=== PATIENT | female | born 1985 | race Caucasian/White ===

== ENCOUNTER 2020-11-01 07:59 | Outpatient (CLI) | payer BC, SELFPAY ==
[2020-11-01 08:35] LABS: Glucose Fasting Gestational 86 mg/dL (>/=95)
[2020-11-01 10:07] LABS: Glucose 1 Hour Gest 148 mg/dL (>/=180)
[2020-11-01 10:52] LABS: Glucose 2 Hour Gest 117 mg/dL (>/= 155)
[2020-11-01 12:00] LABS: Glucose 3 Hour Gest 145 mg/dL (>/=140)
== END 2020-11-01 08:00 | disposition home or self-care (01) ==
LOC: ANHLAB 08:03
PROVIDERS: PCP Physician Assistant; Visit Provider Obstetrics & Gynecology
DX: O99.810 Abnormal glucose complicating pregnancy (principal); Z3A.00 Weeks of gestation of pregnancy not specified
CPT/HCPCS: 36415; 82951; 82952

== ENCOUNTER 2020-12-27 09:30 | Outpatient (CLI) | payer BC, SELFPAY ==
[2020-12-27 10:32] LABS: Glucose Fasting Gestational 83 mg/dL (>/=95)
[2020-12-27 11:27] LABS: Glucose 1 Hour Gest 138 mg/dL (>/=180)
[2020-12-27 12:28] LABS: Glucose 2 Hour Gest 132 mg/dL (>/= 155)
[2020-12-27 13:16] LABS: Glucose 3 Hour Gest 137 mg/dL (>/=140)
== END 2020-12-27 09:31 | disposition home or self-care (01) ==
LOC: ANHLAB 09:32
PROVIDERS: PCP Physician Assistant; Visit Provider Obstetrics & Gynecology
DX: O35.8XX9 Maternal care for other (suspected) fetal abnormality and damage, other fetus (principal); Z3A.00 Weeks of gestation of pregnancy not specified
CPT/HCPCS: 36415; 82951; 82952

== ENCOUNTER 2021-01-25 09:27 | Outpatient (CLI) | payer BC, SELFPAY ==
[2021-01-25] VITALS (9 sets, daily range): BP systolic 126–133; BP diastolic 79–92; PULSE 90–95
--- NOTE | 2021-01-25 10:08 | PC.NURSE ---
Patient offered Zofran and patient is declining it at this time. States that its just her normal morning sickness and that she is ok.
[2021-01-25 10:21] LABS: Basophils Percent Auto 0.3 % (0.2-1.2); Eosinophils Absolute Auto 0.1 K/mm3 (0-0.3); Eosinophils Percent Auto 0.3 % (0-4.4); Hematocrit 31.7 % (37.0-47.0); Hemoglobin 9.9 g/dL (12.0-15.0); Immature Granulocyte Absolute 0.14 K/mm3 (0.00-0.031); Lymphocytes Absolute Auto 1.65 K/mm3 (0.9-3.2); Lymphocytes Percent Auto 11.5 % (18.3-44.2); Mean Corpuscular HGB Conc 31.2 g/dl (32-36); Mean Corpuscular Hemoglobin 27.2 pg (26-34); Mean Corpuscular Volume 87.1 fl (80-100); Mean Platelet Volume 10.3 fl (7.4-10.4); Monocytes Percent Auto 7.1 % (2.6-8.5); Neutrophils Absolute Auto 11.4 K/mm3 (1.3-6.7); Neutrophils Percent Auto 79.8 % (45.5-73.1); Platelet Count Result 322 k/mm3 (150-375); Red Blood Count 3.64 M/mm3 (4.2-5.4); Red Cell Distribution Width 13.4 % (11.5-14.5); White Blood Count 14.3 K/mm3 (4.5-10.0)
--- NOTE | 2021-01-25 10:24 | PC.NURSE ---
Patient states that her nausea is better.
[2021-01-25 10:38] LABS: Alanine Aminotransferase 17 U/L (4-35); Albumin Level 3.5 g/dL (3.5-5.1); Alkaline Phosphatase 131 U/L (38-126); Anion Gap 9 mmol/L (8-16); Aspartate Amino Transferase 20 U/L (14-36); Bilirubin,Total 0.3 mg/dL (0.2-1.3); Blood Urea Nitrogen 8 mg/dL (7-17); Calcium 8.9 mg/dL (8.4-10.2); Carbon Dioxide 20 mmol/L (22-30); Chloride 105 mmol/L (98-107); Estimated Glomerular Filt Rate > 60; Glucose 93 mg/dL (65-110); Sodium 134 mmol/L (137-145); Uric Acid 3.2 mg/dL (2.5-7.5)
[2021-01-25 10:44] LABS: Add Urine Microscopic? YES; Appearance Urine Cloudy (Clear); Bacteria Urine 2+ /hpf; Bilirubin Urine Negative (Negative); Blood Urine Negative (Negative); Color Urine Yellow (Yellow); Glucose Urine UA Negative (Negative); Ketones Urine Negative (Negative); Leukocyte Esterase Ur Negative LEU/UL (NEGATIVE); Mucus Urine Heavy /lpf; Nitrate Urine Negative (Negative); Protein Urine 2+ mg/dL (Negative); Specific Grav Ur 1.026 (1.001-1.035); Squamous Epithelial Cell Urine Many /hpf (Few); Urobilinogen Urine Negative mg/dL (<2.0)
[2021-01-25 10:56] LABS: Creatinine Urine 193.3 mg/dL; Total Protein Urine Random 20 mg/dL
== END 2021-01-25 11:42 | disposition home or self-care (01) ==
LOC: ANHOBOP 09:34 → ANHOBPP 09:36
PROVIDERS: PCP Physician Assistant; Visit Provider Obstetrics & Gynecology
DX: O13.9 Gestational [pregnancy-induced] hypertension without significant proteinuria, unspecified trimester (principal); Z3A.00 Weeks of gestation of pregnancy not specified
CPT/HCPCS: 36415; 59025; 80053; 81001; 82570; 84156; 84550; 85025; 87086; 99199

== ENCOUNTER 2021-02-05 05:14 | Inpatient (IN) | payer BC, SELFPAY ==
[2021-02-05] VITALS (66 sets, daily range): BP systolic 109–155; BP diastolic 68–98; PULSE 72–198; RESP 11–20; TEMP 36.2–37; O2SAT 97–100; BMI 37.2
[2021-02-05] MEDS: LACTATED RINGERS 1,000 ML 125 ML IV CONT ×2 (06:00→07:07)
[2021-02-05 06:04] LABS: Basophils Percent Auto 0.2 % (0.2-1.2); Eosinophils Absolute Auto 0.1 K/mm3 (0-0.3); Eosinophils Percent Auto 0.5 % (0-4.4); Hematocrit 30.6 % (37.0-47.0); Hemoglobin 9.7 g/dL (12.0-15.0); Immature Granulocyte Absolute 0.23 K/mm3 (0.00-0.031); Immature Granulocyte Percent A 1.7 % (0-0.5); Lymphocytes Absolute Auto 1.75 K/mm3 (0.9-3.2); Lymphocytes Percent Auto 12.8 % (18.3-44.2); Mean Corpuscular HGB Conc 31.7 g/dl (32-36); Mean Corpuscular Hemoglobin 27.4 pg (26-34); Mean Corpuscular Volume 86.4 fl (80-100); Monocytes Absolute Auto 1.3 K/mm3 (0.1-0.6); Monocytes Percent Auto 9.7 % (2.6-8.5); Neutrophils Absolute Auto 10.3 K/mm3 (1.3-6.7); Neutrophils Percent Auto 75.1 % (45.5-73.1); Platelet Count Result 302 k/mm3 (150-375); Red Blood Count 3.54 M/mm3 (4.2-5.4); Red Cell Distribution Width 13.2 % (11.5-14.5); White Blood Count 13.7 K/mm3 (4.5-10.0)
[2021-02-05] MEDS: GENTAMICIN SULFATE INJ 415 MG in DEXTROSE 5% 100 ML 110.38 MG IVPB (06:10)
--- NOTE | 2021-02-05 06:21 | WPDANESEPP ---
Anes - Eval Pre Procedure Procedure: Operation Date: 02/06/21 07:30 Proposed Procedures p Primary Section - Mila Syed MD Date/Time: 02/05/21 06:21 Pre Op Diagnosis: Leaking Fluid Patient Data Age: 35 Gender: F Height: 1.73 m Weight: 111 kg Last Vital Signs Pulse 102 H 02/05/21 06:16 BP 132/84 02/05/21 06:16 Allergies Allergy/AdvReac Type Severity Reaction Status Date / Time Penicillins Allergy Intermediate swelling Verified 08/20/20 09:09 and hives Home Medications Medication Instructions Recorded Confirmed Type promethazine 12.5 mg tablet See Rx Instructions .ROUTE 07/25/19 01/16/21 Rx .COMPLEX #90 tablet lorazepam 0.5 mg tablet 0.5 mg PO BID PRN #30 tablet 05/22/20 01/16/21 Rx ondansetron HCl 4 mg tablet See Rx Instructions .ROUTE 05/22/20 01/16/21 Rx .COMPLEX #30 tablet amitriptyline 150 mg tablet See Rx Instructions .ROUTE 11/14/20 01/16/21 Rx .COMPLEX #30 tablet PNV cmb#95-ferrous fumarate-FA 1 tablet PO DAILY 01/16/21 01/16/21 History [] Laboratory Tests 02/05/21 02/05/21 05:48 05:48 WBC 13.7 K/mm3 H K/mm3 (4.5-10.0) RBC 3.54 M/mm3 L M/mm3 (4.2-5.4) Hgb 9.7 g/dL L g/dL (12.0-15.0) Hct 30.6 % L % (37.0-47.0) MCV 86.4 fl fl (80-100) MCH 27.4 pg pg (26-34) MCHC 31.7 g/dl L g/dl (32-36) RDW 13.2 % % (11.5-14.5) Plt Count 302 k/mm3 k/mm3 (150-375) MPV 10.0 fl fl (7.4-10.4) Immature Gran % (Auto) 1.7 % H % (0-0.5) Neut % (Auto) 75.1 % H % (45.5-73.1) Lymph % (Auto) 12.8 % L % (18.3-44.2) [place] % (Auto) 9.7 % H % (2.6-8.5) Eos % (Auto) 0.5 % % (0-4.4) Baso % (Auto) 0.2 % % (0.2-1.2) Lymph # (Auto) 1.75 K/mm3 K/mm3 (0.9-3.2) [place] # (Auto) 1.3 K/mm3 H K/mm3 (0.1-0.6) Eos # (Auto) 0.1 K/mm3 K/mm3 (0-0.3) Baso # (Auto) 0.0 K/mm3 K/mm3 (0.0-0.1) Abs Immat Gran (auto) 0.23 K/mm3 H K/mm3 (0.00-0.031) Absolute Neuts (auto) 10.3 K/mm3 H K/mm3 (1.3-6.7) Absolute Nucleated RBC 0.0 K/mm3 K/mm3 (0.0-0.012) Nucleated RBC % 0.0 % % (0.0-0.2) RPR Pending Patient hx anesthesia problems: none Family hx anesthesia problems: none Results Review: All pre-operative results and documents have been reviewed as part of the pre-operative evaluation. [facility] Family History Family History Father Patient's father is in good health Sibling Patient's sister is in good health Mother Family history of lung cancer Patient's mother is Grandparent Family history of lung cancer Social History Social History Smoking status: Never smoker Second hand tobacco smoke exposure: Yes Alcohol intake: never Substance use: never Substance use type: marijuana Spiritual care concerns: No Exam Day of Procedure 02/05/21 06:21
--- NOTE | 2021-02-05 07:04 | WPDANESEPPF ---
Anes - Initial Pre Proc Eval Procedure: Operation Date: 02/05/21 07:00 Proposed Procedures p Primary Section - Mila Syed MD Date/Time: 02/05/21 07:04 Surgeon: Mila Syed MD Pre Op Diagnosis: Leaking Fluid Patient Data Age: 35 Gender: F Height: 1.73 m Weight: 111 kg Last Vital Signs Temp 36.3 C L 02/05/21 06:43 Pulse 99 02/05/21 07:01 BP 136/94 H 02/05/21 07:01 Allergies Allergy/AdvReac Type Severity Reaction Status Date / Time Penicillins Allergy Intermediate swelling Verified 08/20/20 09:09 and hives Home Medications Medication Instructions Recorded Confirmed Type promethazine 12.5 mg tablet See Rx Instructions .ROUTE 07/25/19 01/16/21 Rx .COMPLEX #90 tablet lorazepam 0.5 mg tablet 0.5 mg PO BID PRN #30 tablet 05/22/20 01/16/21 Rx ondansetron HCl 4 mg tablet See Rx Instructions .ROUTE 05/22/20 01/16/21 Rx .COMPLEX #30 tablet amitriptyline 150 mg tablet See Rx Instructions .ROUTE 11/14/20 01/16/21 Rx .COMPLEX #30 tablet PNV cmb#95-ferrous fumarate-FA 1 tablet PO DAILY 01/16/21 01/16/21 History [] Laboratory Tests 02/05/21 02/05/21 05:48 05:48 WBC 13.7 K/mm3 H K/mm3 (4.5-10.0) RBC 3.54 M/mm3 L M/mm3 (4.2-5.4) Hgb 9.7 g/dL L g/dL (12.0-15.0) Hct 30.6 % L % (37.0-47.0) MCV 86.4 fl fl (80-100) MCH 27.4 pg pg (26-34) MCHC 31.7 g/dl L g/dl (32-36) RDW 13.2 % % (11.5-14.5) Plt Count 302 k/mm3 k/mm3 (150-375) MPV 10.0 fl fl (7.4-10.4) Immature Gran % (Auto) 1.7 % H % (0-0.5) Neut % (Auto) 75.1 % H % (45.5-73.1) Lymph % (Auto) 12.8 % L % (18.3-44.2) [place] % (Auto) 9.7 % H % (2.6-8.5) Eos % (Auto) 0.5 % % (0-4.4) Baso % (Auto) 0.2 % % (0.2-1.2) Lymph # (Auto) 1.75 K/mm3 K/mm3 (0.9-3.2) [place] # (Auto) 1.3 K/mm3 H K/mm3 (0.1-0.6) Eos # (Auto) 0.1 K/mm3 K/mm3 (0-0.3) Baso # (Auto) 0.0 K/mm3 K/mm3 (0.0-0.1) Abs Immat Gran (auto) 0.23 K/mm3 H K/mm3 (0.00-0.031) Absolute Neuts (auto) 10.3 K/mm3 H K/mm3 (1.3-6.7) Absolute Nucleated RBC 0.0 K/mm3 K/mm3 (0.0-0.012) Nucleated RBC % 0.0 % % (0.0-0.2) RPR Pending Patient hx anesthesia problems: none Family hx anesthesia problems: none Results Review: All pre-operative results and documents have been reviewed as part of the pre-operative evaluation. [facility] Past Medical History Medical History (Updated 02/05/21 @ 07:04 by Darrel Emmanuel MD) Cyclic vomiting syndrome Family History Family History Father Patient's father is in good health Sibling Patient's sister is in good health Mother Family history of lung cancer Patient's mother is Grandparent Family history of lung cancer Social History Social History (Updated 02/05/21 @ 07:05 by Darrel Emmanuel MD) Smoking status: Former smoker Tobacco type: cigarettes Second hand tobacco smoke exposure: Yes Alcohol intake: never Substance use: never Substance use type: marijuana Spiritual care concerns: No Anes - Eval Final PreProcedure Day of Procedure 02/05/21 07:04 Patient weight: obese Heart: regular rate and rhythm Lungs: clear to auscultation Airway: Mallampati scale class II Neurological: alert and oriented Last oral intake: >/= 8 hours ASA classification: II Emergent: no Anesthetic plan: proceed Anesthesia type and monitoring: regional spinal and standard monitoring Results Review: All pre-operative results and documents have been reviewed as part of the pre-operative evaluation. Informed Consent: The patient's anesthetic plan and its attendant risks and benefits were discussed with the patient/family/POA. Questions were solicited and answers provided to the satisfaction of the patient/family/POA.
[2021-02-05] MEDS: CLINDAMYCIN 900 MG/D5W 50 ML 900 MG/50 ML PIGGYBACK 50 MG IVPB (07:08)
--- NOTE | 2021-02-05 07:24 | PM.IMHP ---
H&P: HPI History of Present Illness Date/Time: 02/05/21 07:24 Chief Complaint: SROM at 430 Narrative: Jackie is a 35yo G1 at 38.6 who has SROM. Planned CS tomorrow for breech, LGA. otherwise uncomplicated. Review of Systems Review of Systems: All systems reviewed & are unremarkable except as noted in HPI and below PMFSH Past Medical History Medical History (Updated 02/05/21 @ 07:04 by Darrel Emmanuel MD) Cyclic vomiting syndrome Family History Family History Father Patient's father is in good health Sibling Patient's sister is in good health Mother Family history of lung cancer Patient's mother is Grandparent Family history of lung cancer Social History Social History (Updated 02/05/21 @ 07:05 by Darrel Emmanuel MD) Smoking status: Former smoker Tobacco type: cigarettes Second hand tobacco smoke exposure: Yes Alcohol intake: never Substance use: never Substance use type: marijuana Spiritual care concerns: No Meds Home Medications and Allergies Home Medications Medication Instructions Recorded Confirmed Type promethazine 12.5 mg tablet See Rx Instructions .ROUTE 07/25/19 01/16/21 Rx .COMPLEX #90 tablet lorazepam 0.5 mg tablet 0.5 mg PO BID PRN #30 tablet 05/22/20 01/16/21 Rx ondansetron HCl 4 mg tablet See Rx Instructions .ROUTE 05/22/20 01/16/21 Rx .COMPLEX #30 tablet amitriptyline 150 mg tablet See Rx Instructions .ROUTE 11/14/20 01/16/21 Rx .COMPLEX #30 tablet PNV cmb#95-ferrous fumarate-FA 1 tablet PO DAILY 01/16/21 01/16/21 History [] Allergies Allergy/AdvReac Type Severity Reaction Status Date / Time Penicillins Allergy Intermediate swelling Verified 08/20/20 09:09 and hives Vital Signs Vital Signs - 24 hr 02/05/21 05:31 02/05/21 05:46 02/05/21 06:01 Temperature Pulse Rate 99 107 H 100 Blood Pressure 125/75 120/72 142/91 H 02/05/21 06:16 02/05/21 06:31 02/05/21 06:43 Temperature 97.3 F L Pulse Rate 102 H 100 Blood Pressure 132/84 133/89 02/05/21 06:46 02/05/21 07:01 02/05/21 07:16 Temperature Pulse Rate 96 99 99 Blood Pressure 127/79 136/94 H 131/83 Exam Const: General: no acute distress Resp: Effort & Inspection: normal respiratory effort Auscultation: clear to auscultation bilaterally Cardio: Rate: regular rate Rhythm: regular rhythm GI: GI Palp: Yes Soft to palpation Extrem: General: normal to inspection H&P: Results Labs Labs: Short CBC 02/05/21 Range/Units 05:48 WBC 13.7 H (4.5-10.0) K/mm3 Hgb 9.7 L (12.0-15.0) g/dL Hct 30.6 L (37.0-47.0) % Plt Count 302 (150-375) k/mm3 Assessment and Plan Additional Plan Plan primary CS YOHAN perry Discussed RBA, pt consented, all questions answered. will proceed.
--- NOTE | 2021-02-05 08:18 | PM.OBPRVD ---
OB - Delivery Note Procedure Delivery date: 02/05/21 Procedure: Procedures Operation Date: 02/05/21 07:00 <No data on this case meets the specified criteria> Operation Date: 02/05/21 07:30 Actual Procedure Side Surgeon p Section Mila Syed MD Route of delivery: Specimen: Yes (placenta) Quantitative Blood Loss (ml): 190 Anesthesia type: Spinal Disposition: floor Complications: none Narrative: The patient was taken to the OR and received spinal anesthesia. She was placed in dorsal supine position with left lateral tilt. SCDs and cunningham were placed. She was prepped and draped in the normal sterile fashion. A Pfannensteil skin incision was made and carried through to the underlying layer of fascia. The fascia was incised in the midline and then extended laterally using Vallejo scissors. The muscles were in the midline and the peritoneum was entered bluntly. The peritoneal incision was extended inferiorly and superiorly with care to avoid the bladder. The bladder blade was then inserted, the vesicouterine peritoneum was grasped, incised with Metzenbaum scissors, and a bladder flap created. The bladder blade was reinserted. A low transverse uterine incision was made with a scalpel and extended bluntly. AROM was performed and fluid was noted to be clear. The head was delivered, followed by the remainder of the baby. The baby's oropharynx was suctioned. After 30 seconds, the cord was clamped and cut and the infant was handed off. Cord blood was obtained and the placenta was then removed manually. The uterus was exteriorized. A moist lap sponge was used to curette the endometrium. The uterine incision was then closed with one layer of 0-Vicryl in a running, locking fashion. Good hemostasis was noted. The posterior cul de sac was irrigated with normal saline and cleared of all clot and debris. The uterus was returned to the abdomen. Both lateral gutters were then irrigated. The rectus muscles were inspected and found to be hemostatic. The fascia was reapproximated using 0-Vicryl in running fashion. The subcutaneous tissue was irrigated with normal saline and made hemostatic with Bovie electrocautery. The subcutaneous tissue was reapproximated with a layer of running 2-0 plain gut. The skin was then closed with absorbable maribel. Steri strips and a bandage were applied. The uterus was evacuated. The patient tolerated the procedure very well. All counts were correct. She was taken to the recovery room in good condition. Baby Date of : 02/05/21 Time of : 07:48 Weeks of gestation at delivery: 38 gender: Female Weight (pounds): 9 Weight (ounces): 9 presentation: breech Placenta delivery description: Manual Removal cord vessel description: 3 Vessels and Delayed Cord Clamping score one minute: 8 score five minutes: 9
[2021-02-05] MEDS: OXYTOCIN 30 UNITS/NS 500 ML 30 UNITS/500 ML BAG 125 UNITS IV CONT (08:31)
[2021-02-05 10:01] LABS: Rapid Plasma Reagin Non-Reactive (NonReactive)
[2021-02-05] MEDS: fentaNYL CITRATE INJ (*CRX) 100 MCG/2 ML VIAL 25 MCG IV PUSH (10:30)
--- NOTE | 2021-02-05 10:36 | PC.NURSE ---
Patient transferred to post room #288 per stretcher from labor and delivery. Support person present. Oriented to unit, room, information board, rooming in, admission packet and security measures. Patient verbalizes understanding.
--- NOTE | 2021-02-05 11:15 | PC.NURSE ---
Consult with pt., mother reports is eagerly fed first feeding without issue. Reviewed feeding cues, frequencies, duration of feedings, feeding elimination flow sheet, and signs of adequate intake. Demonstrated stimulation techniques to wake for feeding. Reviewed signs of a correct latch, effective nursing and suck swallow ratio. Nipple care reviewed of lanolin after feedings and warm compresses as needed. Requested mother to call out for RN/LC assistance next feeding to assess latch. Instructed feeding should be initiated three hours from start of last feeding or if feeding cues are noted before. Mother voiced understanding of information shared.
--- NOTE | 2021-02-05 11:40 | PC.NURSE ---
Mother called out for assist with feeding. Infant is able to freely thrust tongue past gum ridge and flange both lips. Skin is intact on both nipples, no redness and bruising noted. Reviewed feeding cues, frequencies, duration of feedings, feeding elimination flow sheet, and signs of adequate intake. Demonstrated stimulation techniques to wake for feeding. Assisted with infant to breast. Reviewed positioning/alignment in cross cradle, holding breast in ?U? hold and guided asymmetrical latch on. Reviewed rational for each. Several attempts made was sleepy and not making attempts to latch. Suggested skin to skin and attempt again in 30 minutes.
--- NOTE | 2021-02-05 12:30 | PC.NURSE ---
Assisted with infant to breast. Reviewed positioning/alignment in cross cradle, holding breast in ?U? hold and guided asymmetrical latch on. Reviewed rational for each. Small amount of glucose to gloved finger to entice infant to suck. Infant eagerly suckling. Infant able to latch correctly within a few attempts. nursed eagerly with steady draws and occasional swallowing noted, some pausing noted. Reviewed signs of a correct latch, effective nursing and suck swallow ratio. Suggested mother stimulate while feeding to increase stimulate, increase intake and to assist with maintaining deep latch. would slip to shallow latch causing tenderness. Demonstrated how to adjust latch more deeply while feeding if needed. Mother reports she can feel the difference in latch with no tenderness. Nipple care reviewed of lanolin after feedings, warm compresses as needed. Instructed mother to call out for RN assistance if she is unable to latch for feeding or she has discomfort with nursing. Instructed feeding should be initiated three hours from start of last feeding or if feeding cues are noted before. Mother voiced understanding of information shared.
[2021-02-05] MEDS: DEXTROSE 5%/0.45% SOD CHL 1,000 ML 125 ML IV CONT (12:45)
[2021-02-05] MEDS: KETOROLAC 30 MG/ML VIAL (*BKC) IV PUSH (16:59)
[2021-02-06 04:30] VITALS: BP 129/79; PULSE 107; RESP 16; TEMP 36.6
[2021-02-06] MEDS: HYDROcodone/acetaminophen (*CRX) 5-325 MG TABLET 1 TAB PO ×6 (04:39→23:06)
[2021-02-06] MEDS: IBUPROFEN 600 MG TABLET PO ×3 (04:39→19:59)
[2021-02-06 05:20] LABS: Basophils Percent Auto 0.1 % (0.2-1.2); Eosinophils Absolute Auto 0.1 K/mm3 (0-0.3); Eosinophils Percent Auto 0.5 % (0-4.4); Hematocrit 26.8 % (37.0-47.0); Hemoglobin 8.4 g/dL (12.0-15.0); Immature Granulocyte Absolute 0.18 K/mm3 (0.00-0.031); Immature Granulocyte Percent A 1.2 % (0-0.5); Lymphocytes Absolute Auto 1.28 K/mm3 (0.9-3.2); Lymphocytes Percent Auto 8.6 % (18.3-44.2); Mean Corpuscular HGB Conc 31.3 g/dl (32-36); Mean Corpuscular Hemoglobin 26.8 pg (26-34); Mean Corpuscular Volume 85.6 fl (80-100); Mean Platelet Volume 10.3 fl (7.4-10.4); Monocytes Absolute Auto 1.3 K/mm3 (0.1-0.6); Neutrophils Percent Auto 80.6 % (45.5-73.1); Platelet Count Result 270 k/mm3 (150-375); Red Blood Count 3.13 M/mm3 (4.2-5.4); Red Cell Distribution Width 13.3 % (11.5-14.5); White Blood Count 14.9 K/mm3 (4.5-10.0)
--- NOTE | 2021-02-06 07:35 | P.PNOB_ITS ---
OB - PN: Subj Subjective Date/time seen: 02/06/21 07:35 Patient comments: no complaints baby status: doing well [place] feeding status: exclusively breast feeding Narrative: POD 1 from primary CS. Doing well. Normal lochia. Eating, ambulating, cunningham out. Has not voided yet. OB - PN: Obj Data Labs CBC & Chem 7: 02/06/21 04:29 Labs: Laboratory Results - last 24 hr 02/05/21 02/06/21 05:48 04:29 WBC 14.9 H RBC 3.13 L Hgb 8.4 L Hct 26.8 L MCV 85.6 MCH 26.8 MCHC 31.3 L RDW 13.3 Plt Count 270 MPV 10.3 Immature Gran % (Auto) 1.2 H Neut % (Auto) 80.6 H Lymph % (Auto) 8.6 L [place] % (Auto) 9.0 H Eos % (Auto) 0.5 Baso % (Auto) 0.1 L Lymph # (Auto) 1.28 [place] # (Auto) 1.3 H Eos # (Auto) 0.1 Baso # (Auto) 0.0 Abs Immat Gran (auto) 0.18 H Absolute Neuts (auto) 12.0 H Absolute Nucleated RBC 0.0 Nucleated RBC % 0.0 RPR Non-reactive OB - PN A/P Plan day: 1 Plan: routine care Comments: UOP great routine post op care iron for anemia, but minimal drop from starting hgb plans DC for Fri or Sat Time Spent With Patient Time: Total time spent is greater than 50% in coordination of care (as documented) at patient's floor/unit and/or counseling patient: Exam Narrative: NAD abdomen soft, appropriately tender, incision bandaged Extremities nontender with 1+ edema
[2021-02-06 09:20] VITALS: BP 141/91; PULSE 90; RESP 18; TEMP 36.8
[2021-02-06] MEDS: MULTIVIT/MIN/PREN/FOL AC/IRON TABLET 1 TAB PO (09:37)
[2021-02-06] MEDS: POLYSACCHARIDE IRON COMPLEX 150 MG CAPSULE PO ×2 (09:37→16:23)
[2021-02-06] MEDS: DOCUSATE SODIUM 100 MG CAPSULE PO ×2 (09:37→16:23)
--- NOTE | 2021-02-06 13:39 | WPDANLDPN2 ---
Anes-Prog Note L&D Date/Time: 02/06/21 13:39 Comfortable throughout: section Neuraxial method: spinal Epidural/Spinal procedure site: clean & non-tender Neuro status: Neuro function grossly intact. Cardiovascular status: normal Respiratory status: normal Airway patency: baseline Mental status: baseline Post-Op hydration status: normal Vital Signs: Last Vital Signs Temp 36.8 C 02/06/21 09:20 Pulse 90 02/06/21 09:20 Resp 18 02/06/21 09:20 BP 141/91 H 02/06/21 09:20 Pulse Ox 99 02/05/21 10:50 Pain score (VAS): 0 I/O: Intake & Output 02/05/21 02/06/21 02/06/21 23:59 07:59 15:59 Intake Total 1278 400 500 Output Total 2100 1700 500 Balance -822 -1300 0 Post-procedural complaints: none Patient feedback: Patient satisfied with anesthetic care.
--- NOTE | 2021-02-06 13:39 | WPDANLDNPN2 ---
Anes-Prog Note L&D-Neuraxial Date/Time: 02/06/21 13:39 Neuraxial medications: intrathecal PF morphine Opiod-related complaints: none Patient feedback: Patient satisfied with post-operative pain management.
[2021-02-06 20:00] VITALS: BP 138/97; PULSE 112; RESP 16; TEMP 36.2
[2021-02-07] MEDS: IBUPROFEN 600 MG TABLET PO ×3 (03:00→19:27)
[2021-02-07] MEDS: HYDROcodone/acetaminophen (*CRX) 5-325 MG TABLET 1 TAB PO ×2 (03:00→05:55)
--- NOTE | 2021-02-07 07:55 | PM.OBPNVD ---
OB - PN: Subj Subjective Date/time seen: 02/07/21 07:55 Patient comments: no complaints, pain well controlled, incisional pain, tolerating diet and flatus present OB - PN: Obj Data Labs CBC & Chem 7: 02/06/21 04:29 OB - PN A/P Plan day: 2 Plan: routine care Comments: POD#2 LTCS - no problems, Time Spent With Patient Time: Total time spent is greater than 50% in coordination of care (as documented) at patient's floor/unit and/or counseling patient: Exam Const: General: comfortable, no acute distress and alert Resp: Effort & Inspection: normal respiratory effort Auscultation: no crackles, no rales and no rhonchi Cardio: Rate: regular rate Heart sounds: no click, no murmurs and no rubs GI: Inspection: non-distended GI Palp: No Tenderness to palpation present (GI) Auscultation: normal bowel sounds Other: Incision - CDI Extrem: General: normal to inspection, no pedal edema and no calf tenderness
[2021-02-07 09:00] VITALS: BP 134/92; PULSE 109; RESP 16; TEMP 36.6; O2SAT 97
[2021-02-07 09:30] VITALS: PULSE 109; RESP 16; O2SAT 97
[2021-02-07] MEDS: POLYSACCHARIDE IRON COMPLEX 150 MG CAPSULE PO ×2 (09:38→19:26)
[2021-02-07] MEDS: DOCUSATE SODIUM 100 MG CAPSULE PO ×2 (09:38→19:27)
[2021-02-07] MEDS: SIMETHICONE 80 MG TAB.CHEW PO ×2 (09:38→14:09)
[2021-02-07] MEDS: MULTIVIT/MIN/PREN/FOL AC/IRON TABLET 1 TAB PO (09:38)
[2021-02-07] MEDS: HYDROcodone/acetaminophen (*CRX) 10-325 MG TABLET 1 TAB PO ×4 (09:39→23:26)
[2021-02-07 19:20] VITALS: BP 126/84; PULSE 106; RESP 16; TEMP 36.4
[2021-02-08] MEDS: HYDROcodone/acetaminophen (*CRX) 10-325 MG TABLET 1 TAB PO ×5 (02:53→23:29)
[2021-02-08] MEDS: IBUPROFEN 600 MG TABLET PO ×4 (02:54→23:29)
[2021-02-08] MEDS: HYDROcodone/acetaminophen (*CRX) 5-325 MG TABLET 1 TAB PO ×2 (05:55→08:26)
--- NOTE | 2021-02-08 07:36 | PM.OBPNVD ---
OB - PN: Subj Subjective Date/time seen: 02/08/21 07:36 Patient comments: no complaints and incisional pain baby status: doing well Narrative: Would like to stay til tomorrow related to pain. OB - PN: Obj Data Labs CBC & Chem 7: 02/06/21 04:29 OB - PN A/P Plan day: 3 Plan: routine care Comments: DC home tomorrow. Time Spent With Patient Time: Total time spent is greater than 50% in coordination of care (as documented) at patient's floor/unit and/or counseling patient: Exam Narrative: NAD abdomen soft, appropriately tender, incision CDI Extremities nontender with 1+ edema
[2021-02-08 08:00] VITALS: BP 132/82; PULSE 110; RESP 16; TEMP 37.2; O2SAT 99
[2021-02-08] MEDS: MULTIVIT/MIN/PREN/FOL AC/IRON TABLET 1 TAB PO (08:26)
[2021-02-08] MEDS: POLYSACCHARIDE IRON COMPLEX 150 MG CAPSULE PO ×2 (08:26→16:49)
[2021-02-08] MEDS: DOCUSATE SODIUM 100 MG CAPSULE PO ×2 (08:26→16:49)
--- NOTE | 2021-02-08 09:47 | PC.NURSE ---
Consulted with patient, reviewed feeding cues, frequencies, duration of feedings, feeding elimination flow sheet, and signs of adequate intake. Demonstrated stimulation techniques to wake for feeding. Assisted with to breast. Reviewed positioning/alignment, holding breast and asymmetrical latch on. was able to latch correctly after a few attempts of a shallow latch and retrying. Infant latched and nursed eagerly, with steady draws and frequent swallowing noted. Reviewed signs of a correct latch, effective nursing and suck swallow ratio. Infant was able to maintain latch without discomfort to mother. Mom states she is having some nipple tenderness today. no cracking or blisters noted or reported. Nipple care reviewed and importance of getting a deep latch each time. mom starting to feel some fullness in breast today and milk color changing. Instructed mother to call out for RN assistance if she is unable to latch for feeding or she has discomfort with nursing. Infant voiding and stooling well. Instructed feeding should be initiated three hours from start of last feeding or if feeding cues are noted before. Mother voiced understanding of information shared.
--- NOTE | 2021-02-08 09:52 | PC.NURSE ---
Mother verbalizes she is able to independently latch with appropriate positioning/alignment. Infant has had 7 effective feedings in the past 24 hours, and is currently meeting outcomes for weight, output, jaundice and feeding frequencies. Reviewed waking to eat and feeding 8-12 times in 24 hours. Mother states she feels confident to continue effective at home. Reviewed transition to breast milk, signs of adequate intake, and engorgement/relief. Instructed to call ICP if intake/output less than required. Reviewed community resources on the [facility] website and in the Mom/Baby guide. Information on outpatient services provided. Mother has no further questions at this time.
[2021-02-08] MEDS: SIMETHICONE 80 MG TAB.CHEW PO ×2 (17:57→20:05)
[2021-02-08 20:00] VITALS: BP 140/90; PULSE 100; RESP 16; TEMP 36.9; O2SAT 98
[2021-02-09] MEDS: HYDROcodone/acetaminophen (*CRX) 10-325 MG TABLET 1 TAB PO ×2 (04:45→12:16)
--- NOTE | 2021-02-09 05:05 | PC.NURSE ---
Patient viewed the discharge video Mother & Baby Care, The First Two Weeks online. Patient was given the opportunity and encouraged to ask questions. Patient verbalized understanding of information shared and has been given the mother/baby guide for home reference.
--- NOTE | 2021-02-09 06:25 | PM.OBPNVD ---
OB - PN: Subj Subjective Date/time seen: 02/09/21 06:25 Patient comments: no complaints baby status: doing well OB - PN: Obj Data Labs CBC & Chem 7: 02/06/21 04:29 OB - PN A/P Plan day: 4 Plan: routine care and discharge home Time Spent With Patient Time: Total time spent is greater than 50% in coordination of care (as documented) at patient's floor/unit and/or counseling patient: Review of Systems Review of Systems: All systems reviewed & are unremarkable except as noted in HPI and below Exam Narrative: incision CDI Const: General: cooperative Psych: Attitude: cooperative Thought process: Normal thought process present Thought content: Yes Normal thought content present
--- NOTE | 2021-02-09 06:26 | P.DS_ITS ---
DS: Admitting Diagnosis Discharge Date 02/09/21 Admitting Diagnosis primary section OB - DS: Summary OB Procedures : None OB Procedures Intrapartum: (primary) OB Procedures: : None Peripartum Data Procedures: Procedures Operation Date: 02/05/21 07:00 <No data on this case meets the specified criteria> Operation Date: 02/05/21 07:30 Actual Procedure Side Surgeon p Section Mila Syed MD Time Spent with Patient Time attestation: Total time spent providing and/or coordinating discharge servi yovanny: Discharge Plan Discharge Attending physician on discharge: Mila Syed Discharging Clinician: Mila Syed Patient Disposition: Home, Self-Care Activity: may shower, no straining and pelvic rest Diet: as tolerated Patient Instructions: Antibiotic Form Stand Alone Forms: General Discharge Information Follow-up/Referrals: Mila Syed MD [Physician] - 1 Week Discharge Medications: New hydrocodone-acetaminophen 5-325 mg Tablet 1 tablet PO Q4-5H PRN (Reason: Moderate Pain (4-6)) Qty: 30 RF: 0 ibuprofen 600 mg Tablet 600 mg PO Q6H PRN (Reason: Cramping) Qty: 60 RF: 1 docusate sodium 100 mg Capsule 100 mg PO BID Qty: 60 RF: 1 polysaccharide iron complex 150 mg iron Capsule 150 mg PO BIDWM Qty: 60 RF: 1 Continued PNV cmb#95-ferrous fumarate-FA [] 28 mg iron- 800 mcg Tablet 1 tablet PO DAILY RF: 0 ondansetron HCl 4 mg tablet See Rx Instructions .ROUTE .COMPLEX Qty: 30 RF: 0 lorazepam 0.5 mg tablet 0.5 mg PO BID PRN (Reason: anxiety) Qty: 30 RF: 0 amitriptyline 150 mg tablet See Rx Instructions .ROUTE .COMPLEX Qty: 30 RF: 5 Discontinued promethazine 12.5 mg tablet See Rx Instructions .ROUTE .COMPLEX Qty: 90 RF: 1 Date of admission: 02/05/21 05:14 Primary Care Provider: Vern Sun Admitting Provider: Mila Syed Attending physician on admission: Mila Syed Condition: Stable
[2021-02-09] MEDS: IBUPROFEN 600 MG TABLET PO ×2 (07:34→15:21)
[2021-02-09] MEDS: POLYSACCHARIDE IRON COMPLEX 150 MG CAPSULE PO (07:35)
[2021-02-09] MEDS: DOCUSATE SODIUM 100 MG CAPSULE PO (07:35)
[2021-02-09] MEDS: MULTIVIT/MIN/PREN/FOL AC/IRON TABLET 1 TAB PO (07:35)
[2021-02-09] MEDS: SIMETHICONE 80 MG TAB.CHEW PO (07:35)
[2021-02-09] MEDS: HYDROcodone/acetaminophen (*CRX) 5-325 MG TABLET 1 TAB PO (07:35)
[2021-02-09 08:00] VITALS: BP 140/90; PULSE 111; RESP 18; TEMP 37.2; O2SAT 100
--- NOTE | 2021-02-09 12:42 | PC.NURSE ---
Self care and infant discharge instructions given including follow up visit date and time. Parents verbalized understanding. No questions or concerns verbalized. Very pleasant and cooperative.
[2021-02-11 11:27] VITALS: BP 130/84; PULSE 104; RESP 20; TEMP 37.2; O2SAT 100
== END 2021-02-09 15:39 | disposition home or self-care (01) | DRG 788 ==
LOC: ANHLDR 07:09 → ANHOB2 10:58
PROVIDERS: Admitting Provider Obstetrics & Gynecology; PCP Physician Assistant; Visit Provider Obstetrics & Gynecology
PROC: 10D00Z1 Extraction of Products of Conception, Low, Open Approach (ICD-10-PCS; CPT 59514; principal; 2021-02-05 07:30)
DX: O32.1XX0 Maternal care for breech presentation, not applicable or unspecified (principal); O42.92 Full-term premature rupture of membranes, unspecified as to length of time between rupture and onset of labor; O77.0 Labor and delivery complicated by meconium in amniotic fluid; Z3A.38 38 weeks gestation of pregnancy; Z37.0 Single live birth; Z87.891 Personal history of nicotine dependence; Z23 Encounter for immunization
CPT/HCPCS: 36415; 85025; 86592; 86850; 86900; 86901; 90471; 90653; A9270; G0008; J0131; J1200; J1580; J1885; J2274; J2405; J2590; J2704; J3010; J7120

== ENCOUNTER 2024-07-03 14:14 | Emergency (ER) | payer BC, SELFPAY ==
--- OUTSIDE RECORDS SUMMARY | 2024-07-03 14:16 | XMS_ITS | Referral Summary ---
Author Organization [facility] Address [address] [place] [address] Care Team Providers Care Drilling Contractor Name Role Phone Unavailable Primary Care Provider Unavailabl e Source Comments [facility],non-owned Affiliates and Associated Physician Practices is amultiple site organization consisting of ambulatory clinics and hospital sitesin [place], [place], [place] and [place]. This disclosure is being madepursuant to the Care Everywhere program and may not contain all information available regarding this patient. Last updated 18.[facility] Allergies Active Allergy Reactions Criticality Noted Date Comments Penicillins Rash Medium 10/03/2020 Medications * Be aware that medications may not be up to date on this document. Alwaysverify current medications with the patient. Medication Sig Dispensed Refills Start Date End Date Status amitriptyline (ELAVIL) 150 MG tabletIndications:cyc lic vomiting Take 150 mg by mouth at bedtime Reasons: cyclic vomiting Active Vit-Fe Fumarate-FA ( VITAMIN) 28-0.8 MG tabletIndications:Pre gnancy Take 1 tablet by mouth once daily Reasons: Active promethazine (PHENERGAN) 12.5 MG tabletIndications:[place] and Vomiting,Nausea and/or Vomiting in Take 12.5 mg by mouth every 6 hours as needed for Nausea/Vomiting Reasons: Nausea and Vomiting, Nausea and Vomiting in Active ondansetron (ZOFRAN) 4 MG tablet Take 4 mg by mouth every 6 hours as needed for Nausea/Vomiting Active Active Problems Problem Noted Date Diagnosed Date Anxiety Overview (08/01/2020): stopped ativan Assessment & Plan (08/01/2020 4:18 PM CDT): At risk for mood deterioration during and Plan 1. Maintain close contact with counselor Resolved Problems Problem Noted Date Diagnosed Date Resolved Date Depression screen 12/20/2020 02/05/2021 Overview (12/20/2020): 12/20/2020 Jackie Aquino was screened for depression using the [place] Depression Scale (EPDS) at her [facility] initial evaluation on 12/20/2020. Her initial score at baseline was 3. Based off of her score of 3, Jackie does not warrant follow up. Patient will continue to be screened throughout , at intervals no closer than two weeks, for continued surveillance and early identification of depression until delivery. Patient reports mental health history. Diagnoses include anxiety. [facility] abnormality in pre gnancy - mild ventriculomegaly 11/27/2020 02/05/2021 Overview (12/20/2020): Images from the original note were not included. [facility] PATIENT--PLEASE CALL [phone] (ex 2) IF TRIAGED OR ADMITTED Care Provider: Dr. Meredith [facility] consultants involved: RN- Brant; MFM- Dr. Jaime Diagnosis: Unilateral ventriculomegaly on the left side (measured ~12mm on 12/20/20 [facility] US) Planned surveillance: Initial [facility] 12/20/20. Follow-up growth and reassessment of ventricles at [place] in 4 weeks. Continue routine OB care with primary OB. Delivery location: [place] Delivery mode: per usual OB indications Desired Delivery GA: No indication for delivery before 39 weeks at this time follow up: neurosonogram of . Boat Cleaning Supervisor: Undecided Genetics note: NIPT-negative female Weight And Balance Control Agent Concerns: 12/20/2020-Patient with history of anxiety- does take medication. Care plan based on evaluation and is subject to change based on assessment. See Images or Cardiac under Chart Review for US/ ECHO/ MRI reports. Medication exposure during f irst trimester of 07/31/2020 02/05/2021 Overview (08/01/2020): Amitriptyline use d/t cyclic vomiting syndrome Assessment & Plan (10/03/2020 3:28 PM CDT): Continues Amitriptyline with benefit. Rarely uses prn anti-emetics but has them if needed. Notable weight gain today. Plan: 1. Acceptable to continue amitriptyline use since past organogenesis 2. Limited ultrasound at 16 weeks, completed 3. Detailed anatomy at 20 weeks, pending 4. Notify Boat Cleaning Supervisor of use 1. would benefit from increased supervision in the first 48 hours of life 5. No strong contraindication to while using this medication Assessment & Plan (08/01/2020 4:19 PM CDT): Amitriptyline: U.[place] FDA category C. Concern from human studies with congenital malformations, specifically limb reduction defects. Withdrawal symptoms have been reported for newborns who exposed to tricyclic antidepressants in utero. Withdrawal symptoms can include colic, cyanosis, rapid breathing and irritability. Amitriptyline and its major metabolites are present in human breast milk at a small fraction of the maternal serum dose. The overall perception from the WHO working group on drugs and human is at this medication is p robably safe . The [place] [employer] Pediatrics classifies amitriptyline as u nknown but may be of concern . Plan: 1. Acceptable to continue amitriptyline use since past organogenesis 1. Encouraged to enroll in medication registry--URL provided 2. Limited ultrasound at 16 weeks 3. Detailed anatomy at 20 weeks 4. Notify Boat Cleaning Supervisor of use 1. [place] would benefit from increased supervision in the first 48 hours of life 5. No strong contraindication to while using this medication Supervision of normal first 07/31/2020 02/05/2021 Overview (11/30/2020): B+, Negative, Immune, Rpr-NR, HIV-NR, Hbsag-NR, HCV AB: NR H/h/p: 10.1, 31.9, 220 Repeat labs 11/27/20: HH : 10.4, 34.4; HIV panel: Negative 1hr GCT: 136; 3hr GTT: 80,136,116,138 Toxo IGG/IGM: Negative CMV IGG: Quant > 8.0 + (Immune) ; IGM: Negative Encounter for (NT) nuchal translucency scan 07/31/2020 12/20/2020 Overview (07/31/2020): [facility] drawing NIPT. Social History Tobacco Use Types Packs/Day Years Used Date Smoking Tobacco: Never Smokeless Tobacco: Former Alcohol Use Standard Drinks/Week Comments Not Currently 0 (1 standard drink = 0.6 oz pur e alcohol) Sex and Gender Information Value Date Recorded Sex Assigned at Not on file Gender Identity Not on file Sexual Orientation Not on file Last Filed Vital Signs Vital Sign Reading Time Taken Comments Blood Pressure 134/87 12/20/2020 9:11 AM CDT Pulse 106 12/20/2020 9:11 AM CDT Temperature 35.9 C (96.6 F) 08/01/2020 3:27 PM CDT Respiratory Rate - - Oxygen Saturation - - Inhaled Oxygen Concentration - - Weight 105.3 kg (232 lb 2.3 oz) 12/20/2020 9:11 AM CDT Height - - Body Mass Index - - Plan of Treatment Not on file
--- OUTSIDE RECORDS SUMMARY | 2024-07-03 14:16 | XMS_ITS | Patient Health Summary ---
Author Organization [facility] Address [address] [place] [address] Care Team Providers Care Shaping Machine Operator Name Role Phone Unavailable Primary Care Provider Unavailabl e Note from [facility],non-owned Affiliates and Associated Physician Practices is amultiple site organization consisting of ambulatory clinics and hospital sitesin [place], [place], [place] and [place]. This disclosure is being madepursuant to the Care Everywhere program and may not contain all information available regarding this patient. Last updated 18.[facility] Allergies * Penicillins(Rash) -Medium Criticality Medications * Be aware that medications may not be up to date on this document. Alwaysverify current medications with the patient. * amitriptyline (ELAVIL) 150 MG tablet Take 150 mg by mouth at bedtime Reasons: cyclic vomiting * Vit-Fe Fumarate-FA ( VITAMIN) 28-0.8 MG tablet Take 1 tablet by mouth once daily Reasons: * promethazine (PHENERGAN) 12.5 MG tablet Take 12.5 mg by mouth every 6 hours as needed for Nausea/Vomiting Reasons: Nausea and Vomiting, Nausea and Vomiting in * ondansetron (ZOFRAN) 4 MG tablet Take 4 mg by mouth every 6 hours as needed for Nausea/Vomiting Active Problems Problem Noted Date Diagnosed Date Anxiety Resolved Problems Problem Noted Date Diagnosed Date Resolved Date Depression screen 12/20/2020 02/05/2021 SKILLED NURSING abnormality in pre gnancy - mild ventriculomegaly 11/27/2020 02/05/2021 Medication exposure during f irst trimester of 07/31/2020 02/05/2021 Supervision of normal first 07/31/2020 02/05/2021 Encounter for (NT) nuchal translucency scan 07/31/2020 12/20/2020 Social History Tobacco Use Types Packs/Day Years [...] - - Body Mass Index - - Procedures * SONOGRAM - COMPLETE(Performed 01/18/2021) Performed for Encounter for supervision of normal first in third trimester ([facility]), Medication exposure during first trimester of ([facility]), abnormality affecting management of mother, single or unspecified fetus ([facility]) * SONOGRAM - COMPLETE(Performed 12/20/2020) * SONOGRAM - COMPLETE(Performed 11/27/2020) Performed for Medication exposure during first trimester of ([facility]), Encounter for supervision of normal first in second trimester ([facility]) * SONOGRAM - COMPLETE(Performed 10/29/2020) Performed for Medication exposure during first trimester of ([facility]), Encounter for supervision of normal first in second trimester ([facility]), Encounter for (NT) nuchal translucency scan([facility]) * URINALYSIS W/MICROSCOPIC NO CULTURE(Performed 10/05/2020) * CULTURE URINE(Performed 10/05/2020) * SONOGRAM - COMPLETE(Performed 10/03/2020) Performed for Medication exposure during first trimester of ([facility]), Encounter for supervision of normal first in second trimester ([facility]), Encounter for anatomic survey ([facility]) * SONOGRAM - COMPLETE(Performed 09/03/2020) Performed for Medication exposure during first trimester of ([facility]), Encounter for supervision of normal first in second trimester ([facility]) * SONOGRAM - COMPLETE(Performed 08/01/2020) Performed for Medication exposure during first trimester of (H[facility]), Encounter for supervision of normal first in first trimester ([facility]), Encounter for (NT) nuchal translucency scan ([facility]) Results * SONOGRAM - COMPLETE (01/18/2021 2:19 PM CDT) Only the most recent of7 resultswithin the time period is included. Anatomical Region Laterality Modality Other 01/18/2021 2:19 PM CDT Narrative 01/18/2021 2:48 PM CDT [facility] PHONE: FAX: [email or web address]. Name: JACKIE ZAPIEN. No: [id number] Study Date: 01/18/2021 2:19pm , Age: 10 1985, 35 Pregnancies: 1, Para 0 Height: 68 in Weight: 195 lb LMP: 05/10/2020 GA by LMP: 36w1d GA by Base: 36w1d SHERLEY: 02/14/2021 GA by US: 37w3d SHERLEY: 02/05/2021 GA Selected: 36w1d (LMP) SHERLEY: 02/14/2021 Referring MD: Alejo Meredith MD Operator Supply: Carmencita Crawford RDMS CPT4: 88070 BMI: 29.65 Hist/Ind: Ventriculomegaly Suspected accelerated growth Low-risk NIPT (per patient report) MEASUREMENTS & AGE GROWTH EVALUATION Measurement GA Range Srce %for GA Ratios ----- ---- ------- BPD 10.0 cm 41w0d (58n1j-08l9d) Hadl BPD >99 FL/BPD 0.71 (0.71 - 0.87) HC 37.4 cm Hadl HC FL/AC 0.20 (0.20 - 0.24) AC 34.9 cm 38w6d (14x3d-20o2g) Hadl AC >99 HC/AC 1.07 (0.92 - 1.11) FL 7.1 cm 36w3d (07i3d-40b7f) Hadl FL 54% CI 0.74 (0.70 - 0.86) HL 6.4 cm 37w2d (90o2g-33d4w) Ta HL 70% GA for sonogram 37w3d (88j1e-50p5o) Weight Estimate: based on (AC,FL) [place] Weight: 3724 gm (3180-4268gm) Had : 8lbs, 3oz Normal: 2835 gm (2126-3543gm) Had Wt% >97 for 36w1d Heart Rate: 138 bpm Amniotic Fluid Index: 20.6cm (07.7-24.9) Q1: 5.1cm Q2: 4.4cm Q3: 5.0cm Q4: 6.2cm EVAL, PLACENTA Presentation: breech Placenta: posterior:fundal Heart Rate: 138 bpm Amniotic Fluid Volume: normal Anatomy!Normal!Abnormal!Suboptimal!Prev. Seen!Comments Cranium ! ! ! ! x ! Mdl (CSP/Thal! ! ! ! x ! Ventricles ! ! x ! ! !Left lateral ventricle measures 14 mm, unable to visualize right lateral ventricle Choroid Plexu! ! ! ! x ! Cerebellum ! ! ! ! x ! Cerebellar Ve! ! ! ! x ! Cisterna M. ! ! ! ! x ! Nuchal Fold ! ! ! ! x ! Orbits ! ! ! ! x ! Profile ! ! ! ! x ! Nasal Bone ! ! ! ! x ! Lip ! ! ! ! x ! Maxilla ! ! ! ! x ! Mandible ! ! ! ! x ! Neck ! ! ! ! x ! Spine ! ! ! ! x ! Lungs ! ! ! ! x ! 4 Chamber Hea! ! ! ! x ! LVOT ! ! ! ! x ! RVOT ! ! ! ! x ! 3 Vessel View! ! ! ! x ! 3 Vessel Trac! ! ! ! x ! Cross-over ! ! ! ! x ! Ductal Arch ! ! ! ! x ! Aortic Arch ! ! ! ! x ! Caval View ! ! ! ! x ! Situs ! ! ! ! x ! Diaphragm ! ! ! ! x ! Stomach ! ! ! ! x ! Liver ! ! ! ! x ! Bowel ! ! ! ! x ! Kidneys ! ! ! ! x ! Bladder ! ! ! ! x ! 3 Vessel Cord! ! ! ! x ! Cord In! ! ! ! x ! Upper Extremi! ! ! ! x ! Hands ! ! ! ! x ! Lower Extremi! ! ! ! x ! Feet ! ! ! ! x ! External Le Eann! ! ! ! x ! Placental Cor! ! ! ! x ! CLINICAL SUMMARY Study Number: [id number] A single fetus is seen in breech presentation. The measurements today are consistent with greater than expected size for the SHERLEY provided. The SHERLEY is based on a prior ultrasound. The amniotic fluid volume is within normal limits. No major malformations were seen within the limitations of ultrasound. IMPRESSION: Single, live, intrauterine at 36w1d size is large for gestational age Amniotic fluid volume: within normal limits RECOMMEND: Ultrasound follow up as clinically indicated Bring findings to the attention of the email operations manager for further evaluation as indicated post delivery. Thank you for allowing us the opportunity to care for your patient. Darrel Jamil MD <Electronic Signature> 01/18/2021 02:48pm Jcay Meredith MD [facility] ORDERABLES * (ABNORMAL) URINALYSIS W/MICROSCOPIC NO CULTURE (10/05/2020 12:08 PM CDT) Color UA YELLOW YELLOW [facility] Appearance CLEAR CLEAR [facility] Specific [place] UA 1.020 1.001 - 1.035 [facility] pH UA 6.5 5.0 - 8.0 [facility] Glucose UA TRACE(A) NEGATIVE [facility] Bilirubin UA NEGATIVE NEGATIVE [facility] Ketone UA NEGATIVE NEGATIVE [facility] Blood UA TRACE(A) NEGATIVE [facility] Protein UA NEGATIVE NEGATIVE [facility] Nitrite UA NEGATIVE NEGATIVE [facility] Leukocyte UA NEGATIVE NEGATIVE [facility] WBC UA 6-10(A) < OR = 5 /HPF [facility] RBC UA 3-10(A) < OR = 2 /HPF [facility] Epithelial Cell UA 0-5 < OR = 5 /HPF [facility] Bacteria UA FEW(A) NONE SEEN /HPF [facility] Crystals UA FEW ACID URATE(A) NONE SEEN /HPF [facility] Hyaline Casts NONE SEEN NONE SEEN /LPF [facility] Comments FEW MUCOUS THREADS [facility] Comment: Test Performed at: [facility] [address] [place] [address] LAUREN FREITAS DO,MPH 10/05/2020 12:0 8 PM CDT 10/05/2020 12:09 PM CDT Juhi Martell [facility] - URINALYSI S ORDERABLES [facility] [address] [place] [address] * CULTURE URINE (10/05/2020 12:08 PM CDT) Culture [facility] Comment: CULTURE, URINE, ROUTINE Micro Number: [id number] Test Status: Final Specimen Source: URINE, CLEAN CATCH Specimen Quality: Adequate Result: Growth of mixed elan was isolated, suggesting probable contamination. No further testing will be performed. If clinically indicated, recollection using a method to minimize contamination, with prompt transfer to Urine Culture Transport Tube, is recommended. REPORT COMMENT: FASTING:NO Test Performed at: [facility] [id number] ADAM NAM MD 10/05/2020 12:0 8 PM CDT 10/05/2020 12:09 PM CDT Juhi Martell [facility] - MICROBIOL OGY ORDERABLES [facility] [address] [place] [id number]
--- OUTSIDE RECORDS SUMMARY | 2024-07-03 14:16 | XMS_ITS | Clinical Summary ---
Author Organization [facility] Address [address] [place] [address] Care Team Providers Care Extractive Metallurgist Name Role Phone Unavailable Primary Care Provider Unavailabl e Source Comments [facility],non-owned Affiliates and Associated Physician Practices is amultiple site organization consisting of ambulatory clinics and hospital sitesin [place], [place], [place] and [place]. This disclosure is being madepursuant to the Care Everywhere program and may not contain all information available regarding this patient. Last updated 18.[facility] Allergies Active Allergy Reactions Criticality Noted Date [...] Aquino was screened for depression using the [place] Depression Scale (EPDS) at her [facility] initial evaluation on 12/20/2020. Her initial score at baseline was 3. Based off of her score of 3, Jackie does not warrant follow up. Patient will continue to be screened throughout , at intervals no closer than two weeks, for continued surveillance and early identification of depression until delivery. Patient reports mental health history. Diagnoses include anxiety. [facility] abnormality in pre gnancy - mild ventriculomegaly 11/27/2020 02/05/2021 Overview (12/20/2020): Images from the original note were not included. [facility] PATIENT--PLEASE CALL [phone] (ex 2) IF TRIAGED OR ADMITTED Care Provider: Dr. Meredith [facility] consultants involved: RN- Brant; MFM- Dr. Jaime Diagnosis: Unilateral ventriculomegaly on the left side (measured ~12mm on 12/20/20 [facility] US) Planned surveillance: Initial [facility] 12/20/20. Follow-up growth and reassessment of ventricles at [place] in 4 weeks. Continue routine OB care with primary OB. Delivery location: [place] Delivery mode: per usual OB indications Desired Delivery GA: No indication for delivery before 39 weeks at this time follow up: neurosonogram of . Pin Worker: Undecided Genetics note: NIPT-negative female Hr Advisor Concerns: 12/20/2020-Patient with history of anxiety- does [...] anatomy at 20 weeks, pending 4. Notify Pin Worker of use 1. would benefit from increased [...] medication is p robably safe . The [place] [employer] of Pediatrics classifies amitriptyline as u nknown but may be of concern . Plan: 1. Acceptable to continue amitriptyline use since past organogenesis 1. Encouraged to enroll in medication registry--URL provided 2. Limited ultrasound at 16 weeks 3. Detailed anatomy at 20 weeks 4. Notify Pin Worker of use 1. [place] would benefit from increased supervision in the [...] Mass Index - - Plan of Treatment Health Maintenance Due Date Last Done Comments HIV SCREENING 2002 HEPATITIS C SCREENING 02/03/2005 DTAP/TDAP/TD VACCINES (1 - Tdap) 2006 HEPATITIS B VACCINE (1 of 3 - 19+ 3-dose series) 2006 PAP SMEAR 07/11/2023 07/10/2020 COVID-19 VACCINE (3 - 2023-2 5 season) 2024 08/02/2020, 07/05/2020 INFLUENZA VACCINE (#1) 2024 03/08/2020 DEPRESSION SCREENING 05/11/2024 ZOSTER VACCINE (1 of 2) 2037 HIB VACCINE Aged Out No longer eligi ble based on patient's age to complete this topic HPV VACCINE Aged Out No longer eligi ble based on patient's age to complete this topic MENINGOCOCCAL (Group B) VACCINE Aged Out No longer eligible b ased on patient's age to complete this topic MENINGOCOCCAL VACCINE Aged Out No malik neil eligible based on patient's age to complete this topic PNEUMOCOCCAL VACCINE Aged Out No long er eligible based on patient's age to complete this topic
--- OUTSIDE RECORDS SUMMARY | 2024-07-03 14:16 | XMS_ITS | Data Portability ---
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 Questions answered. Prescription given for reclipsen. She will start OCP with next menses and follow up for WWE in July. Not available 06/05/2021 15:35:11 07/18/2021 07/18/2021 Annual gynecological exam performed. Patient will come back in a year unless there are new symptoms. [email or web address] Not available 07/18/2021 15:52:45 12/11/2022 12/11/2022 Annual gynecological exam performed. Patient will come back in a year unless there are new symptoms. [email or web address] Not available 12/11/2022 12:49:08 05/23/2024 05/23/2024 Annual gynecological exam performed. Patient will come back in a year unless there are new symptoms. Not available 05/23/2024 14:18:13 Plan of Treatment Reminders Order Date Submit Date Provider Last Modified By Organization Details Last Modified Time Details Appointments None recorded . Lab urinalys is, dipstick 2022 023 sugey [place], [address], [place], [address], 15:28:07 Referral None recorded . Procedures None recorded . Surgeries None recorded . Imaging None recorded . Medication Orders Nextstel lis 3 mg-14.2 mg (28) tablet 2024 025 [facility][id number], [address], [place], [place], [id number], 5 14:44:23 Isibloom 0.15 mg-0.03 mg tablet 2022 023 [facility] #[id number], [address], [place], [place], [id number], 5 14:43:14 Isibloom 0.15 mg-0.03 mg tablet 2021 022 [facility] #33063, [address], [place], [place], [id number], 5 14:43:14 Reclipse n (28) 0.15 mg-0.03 mg tablet 2021 022 [facility] #25536, [address], [place], [place], [id number], 5 14:43:14 Patient TargetsNo targets recorded. Patient InstructionsNo instructions recorded. Reason for Referral None Reported. Results Created Date Observation Date Name Description Value Unit Range Abnormal Flag Note LastModifiedBy Organization Detail LastModifiedTime 07/19/19 22 07/18/2021 IMAGE GUIDE D PAP AND HPV REGAR DLESS image guided Pap, HPV regardless of Pap result SEE RESULT S BELOW CASE REPOR T: Cytol ogy Gynec ologi truman Repor t Case: [id number] Autho theresa perry Provi dipika: Bruna Meredith MD Colle cted: 07/18 1645 Order ing Locat ion: [place] Path[facility] Recei lizz: 07/19 0116 First Scree n: Sherm an, Viola Speci men: Scree emery Pap - Image d, Cervi x STATE MENT OF ADEQU ACY: Satis facto ry for evalu ation Trans forma tion zone compo nent prese nt FINAL DIAGN OSIS: Negat michael for Intra epith elial Lesio christopher or Argelia sloan (NIL) . Elect cecilleedith cornell kanchan d by Viola Tang on 2021 at 6:21 PM ----- ----- ----- ----- ----- ----- ----- ----- ----- ----- ----- ----- ----- ----- ----- ----- ----- ---- HPV RESUL TS: HPV mRNA E6/E7 : No HPV mRNA Detec edwina NOTE: This high risk HPV mRNA assay detec ts fourt een high- risk HPV types (16, 18, 31, 33, 35, 39, 45, 51, 52, 56, 58, 59, 66, 68) witho ut diffe renti ation . COMME NT: Note: This speci men was revie wed by a Cytot echno logis t and/o r Patho logis t (as indic ated in this repor t) after evalu ation using the Thinp rep Imagi ng Syste m. CLINI TRUMAN INFOR MATIO N: Menst rual Statu s: LMP (if appli cable ): Clini truman Histo ry/Pr eviou s Pap: Type of Neopl klarissa (if appli cable ): Signi fican t Clini truman Findi ngs: Other Histo ry: Hormo ryan (if appli cable ): PAP EDUCA HOMERO L NOTE: The Pap Test is a scree emery test with an inher ent false negat michael rate. Liqui d-bas ed sampl ing may decre ase, but will not elimi santiago, false negat michael resul ts. A negat michael resul t does not precl ude the prese nce and/o r devel opmen t of disea se, since the prese nce of abnor mal cells in the sampl e depen ds on the locat ion of the lesio n and sampl ing techn ique. Diane nued regul ar scree emery is the best metho d of cance r preve ntion . If repor edwina cytol ogic findi ng do not corre late with physi truman and/o r histo rical findi ngs, fureaston er inves tigat ion is recom daren d, as clini sher major nted. Not Available [facility] ([facility]) [address], [place], [address], 07/25/2021 19:25:00 01/30/20 23 01/29/2023 urina lysis , dipst ick Leukocytes neg Not Available [facility] jaclyn [address], [place], [address], 01/29/2023 15:27:34 01/30/20 23 01/29/2023 urina lysis , dipst ick Nitrite neg Not Available [place] [address], [place], [address], 01/29/2023 15:27:34 01/30/20 23 01/29/2023 urina lysis , dipst ick Urobilinogen neg Not Available [facility] phong [address], [place], [address], 01/29/2023 15:27:34 01/30/20 23 01/29/2023 urina lysis , dipst ick Protein neg Not Available [place] [address], [place], [address], 01/29/2023 15:27:34 01/30/20 23 01/29/2023 urina lysis , dipst ick pH 6 Not Available [place] [address], [place], [address], 01/29/2023 15:27:34 01/30/20 23 01/29/2023 urina lysis , dipst ick Blood ++ Not Available [place] [address], [place], [address], 01/29/2023 15:27:34 01/30/20 23 01/29/2023 urina lysis , dipst ick Specific Warren 1.006 [facility] Available [facility] [address], [place], [address], 01/29/2023 15:27:34 01/30/20 23 01/29/2023 urina lysis , dipst ick Ketone neg Not Available [place] [address], [place], [address], 01/29/2023 15:27:34 01/30/20 23 01/29/2023 urina lysis , dipst ick Bilirubin neg Not Available [facility] [address], [place], [address], 01/29/2023 15:27:34 01/30/20 23 01/29/2023 urina lysis , dipst ick Glucose neg Not Available [place] [address], [place], [address], 01/29/2023 15:27:34 01/30/20 23 01/29/2023 urina lysis , dipst ick Appearance clear Not Available [facility] [address], [place], [address], 01/29/2023 15:27:34 01/30/20 23 01/29/2023 urina lysis , dipst ick Color yellow Not Available [place] [address], [place], [address], 01/29/2023 15:27:34 05/23/19 25 05/23/2024 IMAGE GUIDE D PAP AND HPV REGAR DLESS image guided Pap, HPV regardless of Pap result SEE RESULT S BELOW CASE REPOR T: Cytol ogy Gynec ologi truman Repor t Case: [id number] Autho theresa g Provi dipika: Kathya Velasquez, RAG GRADER Colle cted: 05/23 1428 Order ing Locat ion: [place] Patho logcarmelita Recei lizz: 05/24 0135 First Angela n: Padilla Gallagher, CT Speci men: Angela land Pap - Image d, Cervi x STATE MENT OF ADEQU ACY: Satis facto ry for evalu ation Trans forma tion zone compo nent prese nt ----- ----- ----- ----- ----- ----- ----- ----- ----- ----- ----- ----- ----- ----- ----- ----- ----- ---- FINAL DIAGN OSIS: Negat michael for Intra epith elial Lesio christopher or Argelia sloan ([facility]) . Elect armando benson by VALERIANO Sotelo on 2024 at 1207 CORD TIRE BUILDER ----- ----- ----- ----- ----- ----- ----- ----- ----- ----- ----- ----- ----- ----- ----- ----- ----- ---- HPV RESUL TS: HPV mRNA E6/E7 : No HPV mRNA Detec edwina NOTE: This high risk HPV mRNA assay detec ts fourt een high- risk HPV types (16, 18, 31, 33, 35, 39, 45, 51, 52, 56, 58, 59, 66, 68) witho ut diffe renti ation . COMME NT: This speci men was revie wed by a Cytot echno logis t and/o r Patho logis t (as indic ated in this repor t) after evalu ation using the Thinp rep Imagi ng Syste m. CLINI TRUMAN INFOR MATIO N: Menst rual Statu s: LMP (if appli cable ): Clini truman Histo ry/Pr eviou s Pap: Type of Neopl klarissa (if appli cable ): Signi fican t Clini truman Findi ngs: Other Histo ry: Hormo ryan (if appli cable ): PAP EDUCA HOMERO L NOTE: The Pap Test is a scree emery test with an inher ent false negat michael rate. Liqui d-bas ed sampl ing may decre ase, but will not elimi santiago, false negat michael resul ts. A negat michael resul t does not precl ude the prese nce and/o r devel opmen t of disea se, since the prese nce of abnor mal cells in the sampl e depen ds on the locat ion of the lesio n and sampl ing techn ique. Diane nued regul ar scree emery is the best metho d of cance r preve ntion . If repor edwina cytol ogic findi ng do not corre late with physi truman and/o r histo rical findi ngs, furth er inves tigat ion is recom daren d, as clini sher warra nted. Not Available [facility] ([facility]) [address], [place], [address], 05/28/2024 13:10:45 Result Notes None recorded. Problems Name Problem SNOMED Code Status Onset Date Resolution Date Notes Provider Name and Address Organization Details Recorded Time SNOMED CT Concept Completed 201607/09/2020 Encntr for supervisor anodizing exam (general ) (routine ) w/o abn findings ;Recorde d Elsewher e: No Locat ion: [facility] S ource: EHR Activities Counselor maryuri: N Bren ce ID: 0001 Regis lable Time: 02:45:00 PM Rachel elam [facility] 17:24:[address] Concept Completed 201807/09/2020 Encntr for general adult medical exam w/o abnormal findings ;Recorde d Elsewher e: No Locat ion: [facility] S ource: EHR Activities Counselor maryuri: N Bren ce ID: 0001 Regis lable Time: 09:45:00 AM Rachel elam [facility] 17:24:18 Uses combined oral contrace ption 418694992 Completed 201807/09/2020 Encounte r for initial prescrip tion of contrace ptive pills;Re corded Elsewher e: No Locat ion: Akil alvarez [facility] S ource: EHR Activities Counselor maryuri: N Practi ce ID: 0001 Regsi lable Time: 09:45:00 AM Rachelcynthia Ramirez [facility] 17:24:17 Pregnanc y [id number] Completed 202002/13/2021 Mila Syed MD [address], [place], [address], [facility] 10:34:49 Asthma 797639324 Active 2020 Rachel Ramirez [facility], [facility] 17:40:30 Cyclical vomiting syndrome 97444028 Active 2020 Amitrypt yline daily-se en by [facility], Zofran and prometha zine for episodes - [facility] u/s only 11/27/20 8:15A Kely starr [facility] 12:24:15 Cyclical vomiting syndrome 50787862 Completed 2020 Amitrypt yline daily-se en by m, Zofran and prometha zine for episodes - [facility] u/s only 11/27/20 8:15A Kelyyamile starr [facility] 12:24:15 Large for gestatio n age fetus Completed >97% at [facility]; RESIDENTIAL wants to consider consult with dieticia n & MFM if any level on 3 hr GTT was high & 3rd hour was 145 and normal is <140 Kely starr [facility] 10/18/202 1 12:24:15 Left ventricu lar abnormal ity 165305423 Completed Brain- L lateral ventricl e measures 10-12MM. postnata l sonogram per RESIDENTIAL Kely elam, [facility] 1 12:24:15 Left ventricu lar abnormal ity 107029982 Active Brain- L lateral ventricl e measures 10-12MM. postnata l sonogram per RESIDENTIAL Kely starr [facility], [facility] 1 12:24:15 Large for gestatio n age fetus 645707081 Active >97% at [facility]; RESIDENTIAL wants to consider consult with dieticia n & MFM if any level on 3 hr GTT was high & 3rd hour was 145 and normal is <140 Kely starr [facility], [facility] 1 12:24:15 Breech presenta tion 5171033 Active 1 CS 02/06 Kelyyamile starr [facility], [facility] 12:24:16 Breech presenta tion 3129814 Completed 1 CS 02/06 Kely starr [facility], [facility] 12:24:15 Problem Notes None recorded. Procedures Surgical History Date Name Laterality Status Provider Name and Address Organization Details Recorded Time 022 Date of Last Pap Smear completed Fanta Whittington [facility] 12/11/2022 12:49:45 021 SECTION (SURG) completed Jelly Rosario [facility] 02/06/2021 11:03:52 014 Cholecystectomy completed Jessica Yuan [facility] 08/06/2020 10:01:03 007 tonsilectomy/adeno ids completed Jessica Yuan [facility] 08/06/2020 10:01:10 Imaging Results None recorded. Procedure Notes None recorded. Medical Equipment None Reported. Allergies Allergen ID Allergen Name Allergen Category Reaction Reaction Severity Criticality Documentation Date Start Date Code Code System Note Provider Name and Address Organization Details Recorded Time 21503 Product containin g penicilli n (product) medicatio n hives Not available Not available 04/27/2020 24845 8001 SNOMED Rachel Ramirez [facility] 17:23:20 Medications Name Sig Start Date Stop Date Status Note LastModified by Organization Details LastModified Time amitripty line 150 mg tablet TAKE 1 TABLET BY MOUTH EVERY DAY active Not Available Not Available No t Available Phenergan 50 mg/mL injection solution inject 0.25 millilit er by intramus cular route every 4 hours as needed 07/09 completed Prescrib ed Elsewher e: Yes Loca tion: [facility] M odify By: yung Rosario r DateTime : 12/27/19 02:45:00 PM Not Available Not Available Not Available hydrocodo ne 5 mg-acetam inophen 325 mg tablet TAKE 1 TABLET BY MOUTH EVERY 4 TO 5 HOURS NEEDED FOR MODERATE PAIN 06/05 completed Not Available Not Available Not Available promethaz ine 12.5 mg tablet Take 1 tablet 4 times a day by oral route. 12/11 completed Not Available Not Available Not Available Zofran 4 mg tablet Take 2 tablets twice a day by oral route. active Not Available Not Available No t Available lorazepam 0.5 mg tablet TAKE 1 TABLET BY MOUTH TWICE DAILY NEEDED FOR ANXIETY active Not Available Not Available No t Available amitripty line 10 mg tablet take 1 tablet by oral route 3 times every day 07/09 completed Prescrib ed Elsewher e: Yes Loca tion: [facility] M odify By: yung Rosario r DateTime : 12/27/19 02:45:00 PM Not Available Not Available Not Available ondansetr on 4 mg disintegr ating tablet DISSOLVE 2 TABLETS ON THE TONGUE EVERY 8 HOURS NEEDED FOR NAUSEA OR VOMITING 01/29 completed Not Available Not Available Not Available amitripty line 06/05 completed Not Available Not Available Not Available 06/05 completed Not Available Not Available Not Available Isibloom 0.15 mg-0.03 mg tablet TAKE 1 TABLET BY MOUTH EVERY DAY 05/23 completed Not Available Not Available Not Available Nextstell is 3 mg-14.2 mg (28) tablet TAKE 1 TABLET BY MOUTH EVERY DAY active Not Available Not Available No t Available Vitals Date Recorded Body height Body mass index (BMI) Body weight Systolic blood pressure Diastolic blood pressure Provider Name and Address Organization Details Last Updated DateTime 06/05/2021 172.72 cm 33.3 kg/m2 50062.73 g 111 mm[Hg] 70 mm[Hg] Jessica [facility] 2 15:23:05 Date Recorded Body height Body mass index (BMI) Body weight Systolic blood pressure Diastolic blood pressure Provider Name and Address Organization Details Last Updated DateTime 07/18/2021 172.72 cm 31.8 kg/m2 96003.81 g 106 mm[Hg] 74 mm[Hg] Rita Macias [facility] 2 15:52:57 Date Recorded Body height Body mass index (BMI) Body weight Systolic blood pressure Diastolic blood pressure Provider Name and Address Organization Details Last Updated DateTime 12/11/2022 172.72 cm 29.6 kg/m2 71103.51 g 106 mm[Hg] 71 mm[Hg] [facility] 12:49:25 Date Recorded Body height Body mass index (BMI) Body weight Systolic blood pressure Diastolic blood pressure Provider Name and Address Organization Details Last Updated DateTime 01/29/2023 172.72 cm 29.6 kg/m2 94630.51 g 111 mm[Hg] 74 mm[Hg] [facility] 15:09:15 Date Recorded Body height Body mass index (BMI) Body weight Systolic blood pressure Diastolic blood pressure Provider Name and Address Organization Details Last Updated DateTime 05/23/2024 172.72 cm 30.7 kg/m2 83396.66 g 121 mm[Hg] 70 mm[Hg] EDWIN Cedeno [facility] 14:25:59 Social History Question Answer Notes LastModified by Organizat ion Details LastModified Time Tobacco Smoking Status Never Smoker Rachel Ramirez marialuisa, [facility] 07/09/2020 17:42:00 What Is Your Level Of Alcohol Consumption? Occasional [email or web address] Information not available 01/25/2021 If You Are , What Was Your Level Of Alcohol Consumption Prior To ? None [email or web address] Information not available 01/25/2021 Are You Blind Or Do You Have Difficulty Seeing? No [email or web address] Information n ot available 01/25/2021 What Is Your Level Of Caffeine Consumption? Occasional [email or web address] Information not available 01/25/2021 In The 14 Days Before Symptom Onset, Have You Had Close Contact With A Laboratory-confirm ed COVID-19 While That Case Was Ill? No [email or web address] Information n ot available 01/25/2021 In The 14 Days Before Symptom Onset, Have You Had Close Contact With A Person Who Is Under Investigation For COVID-19 While That Person Was Ill? No [email or web address] Information not available 01/25/2021 Have You Been To An Area Known To Be High Risk For COVID-19? No [email or web address] Information not available 01/25/2021 Are You Currently Employed? Yes [email or web address] Information not available 05/23/2024 Are You Deaf Or Do You Have Serious Difficulty Hearing? No Information not available 01/25/2021 What Type Of Diet Are You Following? REGULAR [email or web address] Information n ot available 01/25/2021 What Is The Highest Grade Or Level Of School You Have Completed Or The Highest Degree You Have Received? [id number] Information not available 05/23/2024 Are There Any Guns Present In Your Home? No [email or web address] Information not available 05/23/2024 Have You Ever Been Counseled For Unhealthy Alcohol Use? No [email or web address] Information not available 01/25/2021 Do You Use Your Seat Belt Or Car Seat Routinely? Yes Information not available 01/25/2021 Are You Sexually Active? Yes [email or web address] Information not available 05/23/2024 Do You Have Smoke And Carbon Monoxide Detectors In Your Home? Yes [email or web address] Information not available 01/25/2021 Do You Feel Stressed (tense, Restless, Nervous, Or Anxious, Or Unable To Sleep At Night)? [id number] Information not available 01/25/2021 Do You Use Any Illicit Or Recreational Drugs? No [email or web address] Information not available 01/25/2021 Do You Use Sunscreen Routinely? Yes Information not available 01/25/2021 Has Tobacco Cessation Counseling Been Provided? No [email or web address] Information not available 01/25/2021 Do You Or Have You Ever Used Any Other Forms Of Tobacco Or Nicotine? No [email or web address] Information not available 01/25/2021 Sex: Unknown Functional Status Question Answer Note LastModified by Organizat ion Details LastModified Time Do you have difficulty walking or climbing stairs? No Information not available 12/11/2022 Are you able to walk? [email or web address] Information not available 01/25/2021 Are you able to care for yourself? Yes Information not available 12/11/2022 Do you have difficulty dressing or bathing? No Information not available 12/11/2022 What is your exercise level? Occasional [email or web address] Information not available 01/25/2021 Mental Status None recorded. Family History Relationship Description Onset Age of this Age Resolved Age Notes LastModified by Organization Details LastModified Time Mother Malignant tumor of lung Not available 2020 17:41:30 Paternal Grandfather Diabetes mellitus [email or web address] Not available 2020 17:41:38 Medical History Condition Response Allergies (Food, seasonal, environmental ) N Other N Breast Cancer N Drug/Latex Allergies/Reactions N Blood Transfusion N Dermatologic Disorders N Lung Disease N Defects or Inherited Disease N Breast Problem N Gestational Diabetes N Hematologic disorders N Anesthesia Complications N History of STI N Deep Vein Thrombosis N Polycystic ovary syndrome N Anxiety Disorder N Autoimmune disease N Arthritis N Infertility N Polyps N Acid Reflux (GERD) N History of abnormal pap N Cancer N Stroke N Varicosities N Neurologic/Epilepsy N Endometriosis N High Cholesterol N Headaches N Fibromyalgia N Kidney Disease N Heart Problems N Kidney or Bladder Problems N Thyroid Problems N GI Problems Y Eating Disorder N Anemia N Art (IVF or FET) N Psychiatric Illness N Ovarian Cancer N Diabetes N Pulmonary (TB, Asthma) N Hepatitis/Liver Disease N No Past Medical History N Eczema N Urinary Tract Infection N Abuse/Domestic Violence N Asthma N Trauma/Violence N Depression/ depression N Heart Disease N Pre-Eclampsia N Hypertension N Osteoporosis N Thrombophilias N Gynecological History Statement/Question Response Abnormal Pap N Flow Moderate Date of LMP 04/11/2024 Was last menstrual period normal N STIs/STDs N HPV Vaccine N Duration of Flow (days) 40 Current Control Method BCPs Are cycles usually normal N Date of Last Colonoscopy Sexually Active? Y Menses Monthly Y Date of DEXA bone scan Age of first menstrual cycle 14 Date of Last Pap Smear 07/18/2021 Sexual Problems? N LMP Approximate Obstetrics History GPAL:G 1 P 1 0 0 1 Type Value Full Term 1 Living 1 Total 1 Past Encounters Encounter ID Performer Location Encounter Start Date Encounter Closed Date Diagnosis/Indication Diagnosis SNOMED-CT Code Diagnosis ICD10 Code Diagnosis Note [id number] Miesha Mccrayomar [place] [address] [address] 07/10/2020 11:12:09 07/10/2020 16:23:16 Gynecologic examination 84745861 Z01.419 test positive 145403541 Z32.01 Risk factors addressed: Tobacco Cessation, Safe Sexual Practices, environmen fidencio, work hazards, travel restrictio ns, seat belt use.Eat a health well balanced diet, avoid alcohol, tobacco, and street drugs. Engage in daily low impact exercise, avoid temperatur e extremes, and cat, rodent, and bird feces.Avoi d travel to areas where zika virus is a concern.Of fered cf/sma/nip t. Pt agrees and will draw at 12 week visit. Handouts given and discussed with patient. ildbirth classes recommende d.New OB sheet given. Use of amitriptyl ine for cyclic vomiting. Will schedule mfm consult to discuss alternativ es. Pt discontinu ed ativan once positive test. If previous , counseling .Pt verbalizes that she understand s the importance of above instructio ns.All questions were answered. Patient reminded to have annual well woman examinatio n and address [facility] . [id number] [facility] [address],[place] [address] 07/10/2020 11:13:38 07/11/2020 08:17:54 [id number] Alejo Meredith MD [place] [address],[place] [address] 08/06/2020 09:43:15 08/06/2020 10:40:07 screening 590702320 Z36.89 Routine an tenatal care 380838537 Z34.91 [id number] [facility] [address],[place] [address] 08/06/2020 09:50:17 09/10/2020 17:47:50 [id number] Mila Syed MD [place] [address],[place] [address] 09/03/2020 10:12:20 09/03/2020 11:27:38 Routine care 838610866 Z34.02 [id number] [facility] [address],[place] [address] 10/01/2020 10:15:50 10/01/2020 10:38:12 Routine care 139423999 Z34.90 [id number] Mila Syed MD [place] [address],[place] [address] 10/31/2020 09:23:29 10/31/2020 14:09:56 Routine care 518439357 Z34.02 Large for gestation age fetus 395126172 O35.8XX9 [id number] [address] [address] 11/20/2020 11:39:41 11/21/2020 13:58:28 Routine care 081281199 Z34.90 [id number] Miesha Dimas [place] [address],[place] [address] 12/05/2020 09:40:52 12/05/2020 10:20:52 Routine care 185008936 Z34.90 [id number] Mila Syed MD [place] [address],[place] [address] 12/21/2020 11:53:03 12/21/2020 13:48:28 Large for gestation age fetus 583255371 O35.8XX9 Left ventr icular abnormality 037893519 I51.89 [id number] Alejo Meredith MD [place] [address],[place] [address] 01/04/2021 09:31:10 01/04/2021 12:01:10 Routine care [id number] Z34.91 [id number] Mila Syed MD [place] [address],[place] [address] 01/18/2021 11:54:46 01/18/2021 14:12:32 Large for gestation age fetus [id number] O35.8XX9 [id number] Halina Branch [facility] [address],[place] [address] 01/25/2021 09:56:46 01/25/2021 12:14:09 Routine care [id number] Z34.83 [id number] Mila Syed MD [place] [address],[place] [address] 02/01/2021 10:42:43 02/01/2021 11:21:12 Breech presentation [id number] O32.1XX9 Large for gestation age fetus [id number] O35.8XX9 [id number] MD Eder Marroquin [address],[place] [address] 02/13/2021 10:20:33 02/13/2021 11:20:13 state [id number] Z39.2 [id number] Mila Syed MD [place] [address],[place] [address] 06/05/2021 15:13:19 06/05/2021 15:36:56 Contraception care management [id number] Z30.9 Initial pr escription of oral contraception [id number] Z30.011 [id number] Alejo Meredith MD [place] [address],[place] [address] 07/18/2021 15:37:56 07/18/2021 16:33:09 Gynecologic examination [id number] Z01.419 This patient is here for her annual exam. A thorough history was taken. A physical exam was performed. Age appropriat e routine health screening was ordered, performed, and discussed. Recommende d testing was ordered. She was asked to follow up in one year. She will be informed of any test results. Pap - today Contracept ion care management [id number] Z30.9 [id number] JOSUE Roblero [place] [address],[place] [address] 12/11/2022 12:29:13 12/11/2022 14:12:34 Gynecologic examination [id number] Z01.419 Take Calcium with Vitamin D 1200mg daily if not receiving in daily diet. It is strongly advised to have an annual flu shot and up can obtain at most pharmacies . If you have not had a TDap shot in the last 10 years you should obtain one as well. Discussed with patient & provided with informatio n regarding Gardisil vaccine to prevent the 4 strains for HPV that cause cervical cancer if under age 26. Encourage safe sexual practices, to use condoms and limit partners if not already in a monogamous relationsh ip. Do monthly self breast exams. Have mammogram yearly or every other year depending on family history. BRCA testing is now available for patients with strong genetic history of female cancer. If interested contact the office. Engage in daily exercise of low impact aerobic exercise 45-60 minutes 4-5 times weekly. Avoid tobacco and illicit drugs as well as using moderation with alcohol intake less than 1-2 8 oz beverages daily. This lifestyle behavior pattern will lead to less health conditions and longer life span. If BMI greater than 25 weight watchers or dietary consult advised. Patient received above instructio ns, and questions have been answered. If you have any questions please call or respond to this email. Patient was made aware of the patient portal and may obtain a paper copy of today's plan if desired. WWEBC - OCP, happy with this methoddeni es any contraindi cations, R/B reviewedre fills sent x 12 monthshx of abnormal pap 15+ years ago, no procedures requiredla st pap 07/2021nex t pap due 2024STI testing declinedUT D with PCP for routine labsRTC in 1 year or sooner if needed Contracept ion care management [id number] Z30.9 [id number] JOSUE Roblero [place] [address],[place] [address] 01/29/2023 14:57:09 01/29/2023 15:42:49 Urinary symptoms [id number] R39.9 urine cx sentSTI testing declinedpt opts to defer any treatment until cx resultswil l update patient with results when availablep recautions reviewed Time spent in visit is a total of 20 mins with at least 50% of visit consisting of counseling and review of plan of care. [id number] JOSUE Roblero [place] [address],[place] [address] 05/23/2024 14:05:47 05/23/2024 14:46:56 Gynecologic examination [id number] Z01.419 WWEBC - OCPPap - done todaySTI screen - declinedRo utine labs - UTD/PCPRTC in 1 yr or sooner if needed It is strongly advised to have an annual flu shot and up can obtain at most pharmacies . If you have not had a TDap shot in the last 10 years you should obtain one as well. Discussed with patient & provided with informatio n regarding the HPV vaccine if applicable . Encourage safe sexual practices, to use condoms and limit partners if not already in a monogamous relationsh ip. Do monthly self breast exams. BRCA testing is now available for patients with strong genetic history of female cancer. If interested contact the office. Engage in regular exercise. Avoid tobacco and illicit drugs. This lifestyle behavior pattern will lead to less health conditions and longer life span. If BMI greater than 25 dietary consult advised. Questions answered. Contracept ion care management [id number] Z30.9 all BC options discussedw ould like to switch OCPsrx sent, r/b/a reviewed - updated consent reviewed and signedques tions answered Health Concerns Section Related Observation LastModified by Organization Detai ls LastModified Time None Recorded Concern Status LastModified by Organization Details LastModified Time None Recorded Advance Directives Directive None Recorded Payers Encounter Date Sequence Insurance Name Policy Number Policy Oliva Covered Member ID Oliva Member ID Guarantor Name 06/05/2021 1 [place] [id number] 1 Jackie Aquino [id number] Jackie Aquino 07/18/2021 1 [place] [id number] 1 Jackie Aquino [id number] Jackie Aquino 12/11/2022 1 [place] [id number] 1 Jackie Aquino [id number] Jackie Martinezon 01/29/2023 1 [place] [id number] 1 Jackie Aquino [id number] Jackie Aquino 05/23/2024 1 [place] [id number] 1 Jackie Aquino [id number] Jackie Aquino Notes Date Note Type Note Provider Name and Address Organization Details Recorded Time 2 text/html Here for BC consult. Never came for pp visit except 1 week incision check. Jessica doing great. bottle feeding. wants to go back on pill. was on reclipsen. periods regular. Mila Syed MD [address], [place], [address], [facility] 06/05/2021 15:35:23 2 text/html Annual GYNReported bypatient.History:no gynecologic complaints Menstrual cycle:Normal menses Urinary symptoms:No hematuria; No incontinence Vulva:No genital lesion Vagina:Normal vaginal discharge Breast:No breast pain; No breast lump; No nipple discharge Current Contraception:Oral contraceptives Sexual complaints:No sexual complaints; No pain during intercourse Psychological symptoms:No depression; No anxiety Preventive measures:Encourage self breast examination; Encourage regular exercise Alejo Meredith MD [address], [place], [address], [facility] 07/18/2021 16:28:39 3 text/html Annual GYNReported bypatient.Menstrual cycle:Normal menses Urinary symptoms:No hematuria; No incontinence Vulva:No genital lesion Vagina:Normal vaginal discharge Breast:No breast pain; No breast lump; No nipple discharge Current Contraception:Satisfie d with current contraception; Oral contraceptives Sexual complaints:No sexual complaints; No pain during intercourse; Normal libido Menopausal Symptoms:No menopausal symptoms; Normal vaginal lubrication Psychological symptoms:No depression; No anxiety; No PMDD Preventive measures:Encourage self breast examination; Encourage regular exercise; Encourage no tobacco use; Encourage regular mammograms starting age 40 JOSUE Roblero [address], [place], [address], [facility] 12/11/2022 14:09:59 3 text/html 37yopresents for evaluation of urinary symptomsnoticed 2 days ago, slight burning/pelvic pressure with urinationsymptoms started shortly after ICSA with steady male partnerOCP for BCneg vaginal symptomsneg n/v/fneg flank pains JOSUE Roblero [address], [place], [address], [facility] 01/29/2023 15:38:38 5 text/html Annual GYNReported bypatient.Menstrual cycle:Normal menses Urinary symptoms:No hematuria; No incontinence Vulva:No genital lesion Vagina:Normal vaginal discharge Breast:No breast pain; No breast lump; No nipple discharge Current Contraception:Oral contraceptives Sexual complaints:No sexual complaints; No pain during intercourse; Normal libido Menopausal Symptoms:No menopausal symptoms; Normal vaginal lubrication Psychological symptoms:No depression; No anxiety; No PMDD Preventive measures:Encourage self breast examination; Encourage regular exercise; Encourage no tobacco use; Encourage regular mammograms starting age 40Notes:39yo wwelast pap 2021 - wnlh/o abnormal pap 16+ yrs ago, no procedures requiredBC - OCP. Last month had BTB, wants to discuss switching OCPsdenies h/o DVT/PE, HTN, Stroke/AR, cancer, liver disease, or migraine with aurashe does NOT smoke JOSUE Roblero [address], [place], [address], [facility] 05/23/2024 14:44:36 OBGyn Episode Ob Episode Information Episode Created Date Number of Fetuses Patient Bloodtype Patient rh Status Prepregnancy Weight lbs Domestic Partner Domestic Partner Phone Father Name Newspaper Reporter Status 08/07/19 21 1 B Positive 196 CLOSED Fetus Data First Name Last Name Admitted to NICU Weight (g) Sex Living Outcome Pediatric Complications Fetus ID Race Codes Race Delivery Type Jessica [phone] F true Full Term [id number] Primary Problems Problem Notes Level II 01/18 u/s only 0945 Problem Name Start Date End Date Resolution Snomed Code Not e Left ventricular abnormality [id number] Brain- L latera l ventricle measures 10-12MM. sonogram per [facility] Breech presentation [id number] 1 CS 02/06 Large for gestation age fetus >97% at [facility]; FC I wants to consider consult with bellstand attendant & MFM if any level on 3 hr GTT was high & 3rd hour was 145 and normal is <140 Cyclical vomiting syndrome 07/09/2020 [id number] Amitryptyline daily-seen by mfm, Lino and promethazine for episodes - [facility] u/s only 11/27/20 8:15A Vicente Calculation Initial Vicente Date Initial Exam Date Initial Exam Provider Initial Ultrasound Date Last Menstrual Period Date Ultra Sound Weeks Gestation 02/13/2021 08/06/2020 07/10/2020 05/09/2020 8 Eighteen To Twenty Week Vicente Update Ultra Sound Date Fundal Height At Umbil Quickening Date Ultra Sound Latest Weeks Gestation Final Vicente Confirmed By Final Vicente Confirmed Date Final Vicente Date Ultra Sound Latest Days Gestation 0 [email or web address] 08/06/2020 02/14/20 21 0 Pre-breana Flowsheet Flowsheet Date 07/10/2020 Frey Score Blood Edema Fundus Height Fundus Units Glucose Ketones Leukocytes Nitrite Labor Signs Protein Cervic Dilation Cervic Effacement Cervic Station Type Weight in lbs Pre/Post Dialysis Refused BP Diastolic BP Location Tested BP Systolic BP Type Fetus Heart Rate Present Fetus Movement Comments Flowsheet Date 08/06/2020 Frey Score Blood Edema Fundus Height Fundus Units Glucose Ketones Leukocytes Nitrite Labor Signs Protein Cervic Dilation Cervic Effacement Cervic Station neg none 12 trace Type Weight in lbs Pre/Post Dialysis Refused Weight 202.932616248240 BP Diastolic BP Location Tested BP Systolic BP Type 84 134 Fetus Heart Rate Present A 165 Fetus Movement A No Comments This patient is a 35-year-ol d 1 at 12 weeks gestation who presents for initial care. She had an early Maternal- Medicine evaluation because of her daily amitriptyline use throughout the 1st trimester. She uses that to prevent the cyclic vomiting syndrome episodes that she suffers from. These episodes be diminished in terms of symptoms, by using Zofran Phenergan. She is going back to [facility] for her anatomic survey. Otherwise her obstetric, medical, surgical history is unremarkable. Begin routine care. Flowsheet Date 08/06/2020 Frey Score Blood Edema Fundus Height Fundus Units Glucose Ketones Leukocytes Nitrite Labor Signs Protein Cervic Dilation Cervic Effacement Cervic Station Type Weight in lbs Pre/Post Dialysis Refused BP Diastolic BP Location Tested BP Systolic BP Type Fetus Heart Rate Present Fetus Movement Comments Flowsheet Date 09/03/2020 Frey Score Blood Edema Fundus Height Fundus Units Glucose Ketones Leukocytes Nitrite Labor Signs Protein Cervic Dilation Cervic Effacement Cervic Station neg none trace Type Weight in lbs Pre/Post Dialysis Refused Weight 207.242249537842 BP Diastolic BP Location Tested BP Systolic BP Type 78 125 Fetus Heart Rate Present A 155 Fetus Movement A Yes Comments Doing pretty well. Minimal N /V. Declines AFP. NIPT low risk. Doing anatomy at [facility]. Flowsheet Date 10/01/2020 Frey Score Blood Edema Fundus Height Fundus Units Glucose Ketones Leukocytes Nitrite Labor Signs Protein Cervic Dilation Cervic Effacement Cervic Station 20 trace Type Weight in lbs Pre/Post Dialysis Refused Weight 212.87537475338 BP Diastolic BP Location Tested BP Systolic BP Type 83 133 Fetus Heart Rate Present A 150 Fetus Movement A Yes Comments Visit per Z. Due SNM. U/S We dnesday with [facility] home. Doing well. Nausea/Vomiting minimal. Flowsheet Date 10/31/2020 Frey Score Blood Edema Fundus Height Fundus Units Glucose Ketones Leukocytes Nitrite Labor Signs Protein Cervic Dilation Cervic Effacement Cervic Station none 28 Type Weight in lbs Pre/Post Dialysis Refused Weight 220.914283091355 BP Diastolic BP Location Tested BP Systolic BP Type 75 112 Fetus Heart Rate Present A 135 Fetus Movement A Yes Comments Doing well. US this week at [facility] showed LGA at 97%. Will repeat 3 hr glucose this week. Discuss Tdap next visit. Flowsheet Date 11/20/2020 Frey Score Blood Edema Fundus Height Fundus Units Glucose Ketones Leukocytes Nitrite Labor Signs Protein Cervic Dilation Cervic Effacement Cervic Station 30 trace Type Weight in lbs Pre/Post Dialysis Refused Weight 226.449157049001 BP Diastolic BP Location Tested BP Systolic BP Type 78 114 Fetus Heart Rate Present A 140 Fetus Movement A Yes Comments Doing well. Encouraged TDAP. Switch to visits every 2 weeks. Flowsheet Date 12/05/2020 Frey Score Blood Edema Fundus Height Fundus Units Glucose Ketones Leukocytes Nitrite Labor Signs Protein Cervic Dilation Cervic Effacement Cervic Station trace 32 trace Type Weight in lbs Pre/Post Dialysis Refused Weight 227.004332797686 BP Diastolic BP Location Tested BP Systolic BP Type 72 134 Fetus Heart Rate Present A 148 Fetus Movement A Yes Comments Doing well. TDAP this week. U/S with [facility] in 2 weeks. Flowsheet Date 12/21/2020 Frey Score Blood Edema Fundus Height Fundus Units Glucose Ketones Leukocytes Nitrite Labor Signs Protein Cervic Dilation Cervic Effacement Cervic Station neg trace 36 trace Type Weight in lbs Pre/Post Dialysis Refused Weight 233.597832260238 BP Diastolic BP Location Tested BP Systolic BP Type 87 129 Fetus Heart Rate Present A 145 Fetus Movement A Yes Comments Doing well. Saw [facility] for left ventriculomegaly (mild). No FU there, but LGA 97%, growth FU with [facility] 36 weeks. Still trying to find Tdap. Has had COVID vaccine. Because of LGA, reevaluating for DM. FH of large babies. Her 3hr likely had 2nd and 3rd hours switched, so likely was completely normal. Offered her to repeat the 3hr or check sugars for a week. She prefers the former, at [place]. Will do in the next week. Flowsheet Date 01/04/2021 Frey Score Blood Edema Fundus Height Fundus Units Glucose Ketones Leukocytes Nitrite Labor Signs Protein Cervic Dilation Cervic Effacement Cervic Station 37 trace Type Weight in lbs Pre/Post Dialysis Refused Weight 237.972395219816 BP Diastolic BP Location Tested BP Systolic BP Type 82 R arm 129 sitting Fetus Heart Rate Present A 145 Fetus Movement A Yes Comments MFM next week - she is unsur e of date. Potential Macrosomia - discussed possible LTCS Flowsheet Date 01/18/2021 Frey Score Blood Edema Fundus Height Fundus Units Glucose Ketones Leukocytes Nitrite Labor Signs Protein Cervic Dilation Cervic Effacement Cervic Station neg none 39 trace 2cm 70% -3 Type Weight in lbs Pre/Post Dialysis Refused Weight 242.068589604543 BP Diastolic BP Location Tested BP Systolic BP Type 89 132 Fetus Heart Rate Present A 135 Fetus Movement A Yes Comments Doing well. Good FM. Repeat 3 hr GTT wnl. Growth US next week MFM. Discussed IOL 39 weeks vs CS 39 weeks, depending on size of baby. GBS done and discussed. Cervix favorable already. Flowsheet Date 01/25/2021 Frey Score Blood Edema Fundus Height Fundus Units Glucose Ketones Leukocytes Nitrite Labor Signs Protein Cervic Dilation Cervic Effacement Cervic Station neg none trace Type Weight in lbs Pre/Post Dialysis Refused Weight 241.84454938577 BP Diastolic BP Location Tested BP Systolic BP Type 92 164 90 162 Fetus Heart Rate Present A 145 Present Fetus Movement A Yes Comments patient states that having s ome nausea and vomiting. csection scheduled LGA and breech to LD for pih labs Flowsheet Date 02/01/2021 Frey Score Blood Edema Fundus Height Fundus Units Glucose Ketones Leukocytes Nitrite Labor Signs Protein Cervic Dilation Cervic Effacement Cervic Station neg none 39 trace Type Weight in lbs Pre/Post Dialysis Refused Weight 242.650582362803 BP Diastolic BP Location Tested BP Systolic BP Type 91 141 82 142 Fetus Heart Rate Present A 160 Fetus Movement A Yes Comments Doing ok, just tired and unc omfortable. Primary CS breech in 5 days. BP borderline, but PIH labs fine last week, denies sx. Precautions given. Flowsheet Date 02/13/2021 Frey Score Blood Edema Fundus Height Fundus Units Glucose Ketones Leukocytes Nitrite Labor Signs Protein Cervic Dilation Cervic Effacement Cervic Station Type Weight in lbs Pre/Post Dialysis Refused Weight 221.504798377610 BP Diastolic BP Location Tested BP Systolic BP Type 94 134 90 140 80 130 Fetus Heart Rate Present Fetus Movement Comments Menstrual History Last Menstrual Date Menses Monthly On Bcp Conception Prior Menses Frequency Hcg Plus Date Menarche Onset Age 1205/09/2020 Genetic Screening And Infection History Question Response Note Mental Retardation/Autism false Patient's Age Will Be 35 Years Or Older At Estim ated Date of Delivery false Thalassemia (Uzbek, Vietnamese, Mediterranean, Or Background): MCV < 80 false Neural Tube Defect (Meningomyelocele, Spina Bifi da, Or Anencephaly) false Congenital Heart Defect false Down Syndrome false Dawood-Sachs (eg, Adventism, Cajun, Serbian-Keweenaw) f alse [place] Disease false Sickle Cell Disease Or Trait () false Hemophilia Or Other Blood Disorders false Muscular Dystrophy false Cystic Fibrosis false Hazel Hurst's Chorea false Intellectual Disability/Autism false If Yes, Was Person Tested For Fragile X? false Other Inherited Genetic Or Chromosomal Disorder false Maternal Metabolic Disorder (eg, Type 1 Diabetes , PKU) false Patient Or Baby's Father Had A Child With Defects Not Listed Above false Recurrent Loss, Or A Stillbirth false Medications (including Suppl ements, Vitamins, Herbs, OTC Drugs), Illicit/Recreational Drugs, Alcohol false If Yes, Agent(s) And Strength/Dosage false Any Other Genetic History false Live With Someone With TB Or Exposed To TB false Patient Or Partner Has History Of Genital Herpes false Rash Or Viral Illness Since Last Menstrual Perio d false History Of STD, Gonorrhea, Chlamydia, HPV, Syphi lis false Other Infection History false History of HIV false History of Hepatitis false Prior GBS-infected child false Hemoglobinopathy Or Carrier false Other Structural Defect false Recent Travel History Outside of Country false Delivery Information Delivery Date Delivery Type Labor Anesthesia Weeks Gestation Incision Type Labor Labor Length Hrs Delivered By Post Complications Tubal Sterilization Discharge Date Comments 1 None Regional-Sp inal 38.6 Low Transvers e false Mila Syed MD breech & LGA Discharge Information Feeding Method Contraceptive Method Maternal HG B and HCT Levels
[2024-07-03 14:46] VITALS: BP 125/81; PULSE 115; RESP 17; TEMP 36.7; O2SAT 100
--- OUTSIDE RECORDS SUMMARY | 2024-07-03 17:09 | XMS_ITS | Referral Summary ---
Author Organization [facility] [employer] Address [address] [place] [address] Care Team Providers Care Bench Assembler Name Role Phone Unavailable Primary Care Provider Unavailabl e Source Comments [facility],non-owned Affiliates and Associated Physician Practices is amultiple site organization consisting of ambulatory clinics and hospital sitesin [place], [place], [place] and [place]. This disclosure is being madepursuant to the Care Everywhere program and may not contain all information available regarding this patient. Last updated 18.[facility] Allergies Active Allergy Reactions Criticality Noted Date [...] Aquino was screened for depression using the [place] Depression Scale (EPDS) at her [facility] initial evaluation on 12/20/2020. Her initial score at baseline was 3. Based off of her score of 3, Jackie does not warrant follow up. Patient will continue to be screened throughout , at intervals no closer than two weeks, for continued surveillance and early identification of depression until delivery. Patient reports mental health history. Diagnoses include anxiety. CUSTODIAL abnormality in pre gnancy - mild ventriculomegaly 11/27/2020 02/05/2021 Overview (12/20/2020): Images from the original note were not included. CUSTODIAL PATIENT--PLEASE CALL [phone] (ex 2) IF TRIAGED OR ADMITTED Care Provider: Dr. Meredith [facility] consultants involved: RN- Brant; MFM- Dr. Jaime Diagnosis: Unilateral ventriculomegaly on the left side (measured ~12mm on 12/20/20 CUSTODIAL US) Planned surveillance: Initial CUSTODIAL 12/20/20. Follow-up growth and reassessment of ventricles at [place] in 4 weeks. Continue routine OB care with primary OB. Delivery location: [place] Delivery mode: per usual OB indications Desired Delivery GA: No indication for delivery before 39 weeks at this time follow up: neurosonogram of . Nursing Agency Manager: Undecided Genetics note: NIPT-negative female Magnetic Locater Concerns: 12/20/2020-Patient with history of anxiety- does [...] anatomy at 20 weeks, pending 4. Notify Nursing Agency Manager of use 1. would benefit from increased [...] medication is p robably safe . The [employer] classifies amitriptyline as u nknown but may be of concern . Plan: 1. Acceptable to continue amitriptyline use since past organogenesis 1. Encouraged to enroll in medication registry--URL provided 2. Limited ultrasound at 16 weeks 3. Detailed anatomy at 20 weeks 4. Notify Nursing Agency Manager of use 1. [place] would benefit from increased supervision in the [...]
--- OUTSIDE RECORDS SUMMARY | 2024-07-03 17:09 | XMS_ITS | Clinical Summary ---
Author Organization [facility] Address [address] [place] [address] Care Team Providers Care Fine Arts Instructor Name Role Phone Unavailable Primary Care Provider Unavailabl e Source Comments [facility],non-owned Affiliates and Associated Physician Practices is amultiple site organization consisting of ambulatory clinics and hospital sitesin [place], [place], [place] and [place]. This disclosure is being madepursuant to the Care Everywhere program and may not contain all information available regarding this patient. Last updated 18.[facility] Allergies Active Allergy Reactions Criticality Noted Date [...] Aquino was screened for depression using the [place] Depression Scale (EPDS) at her [facility] initial evaluation on 12/20/2020. Her initial [...] were not included. SENIOR CARE PATIENT--PLEASE CALL [phone] (ex 2) IF TRIAGED OR ADMITTED Care Provider: Dr. Meredith [facility] consultants involved: RN- Brant; MFM- Dr. Jaime Diagnosis: Unilateral ventriculomegaly on the left side (measured ~12mm on 12/20/20 SENIOR CARE US) Planned surveillance: Initial SENIOR CARE 12/20/20. Follow-up growth and reassessment of ventricles at [place] in 4 weeks. Continue routine OB care with primary OB. Delivery location: [place] Delivery mode: per usual OB indications Desired Delivery GA: No indication for delivery before 39 weeks at this time follow up: neurosonogram of . Unit Controller: Undecided Genetics note: NIPT-negative female Server Security Administrator Concerns: 12/20/2020-Patient with history of anxiety- does [...] anatomy at 20 weeks, pending 4. Notify Unit Controller of use 1. would benefit from increased [...] medication is p robably safe . The [employer] classifies amitriptyline as u nknown but may be of concern . Plan: 1. Acceptable to continue amitriptyline use since past organogenesis 1. Encouraged to enroll in medication registry--URL provided 2. Limited ultrasound at 16 weeks 3. Detailed anatomy at 20 weeks 4. Notify Unit Controller of use 1. [place] would benefit from increased supervision in the [...]
--- OUTSIDE RECORDS SUMMARY | 2024-07-03 17:09 | XMS_ITS | Patient Health Summary ---
Author Organization [facility] Address [address] [place] [address] Care Team Providers Care Rnp Name Role Phone Unavailable Primary Care Provider Unavailabl e Note from [facility],non-owned Affiliates and Associated Physician Practices is amultiple site organization consisting of ambulatory clinics and hospital sitesin [place], [place], [place] and [place]. This disclosure is being madepursuant to the Care Everywhere program and may not contain all information available regarding this patient. Last updated 18.[facility] Allergies * Penicillins(Rash) -Medium Criticality Medications * [...] supervision of normal first in third trimester ([facility]), Medication exposure during first trimester of ([facility]), abnormality affecting management of mother, single or unspecified fetus ([facility]) * SONOGRAM - COMPLETE(Performed 12/20/2020) * SONOGRAM - COMPLETE(Performed 11/27/2020) Performed for Medication exposure during first trimester of ([facility]), Encounter for supervision of normal first in second trimester ([facility]) * SONOGRAM - COMPLETE(Performed 10/29/2020) Performed for Medication exposure during first trimester of ([facility]), Encounter for supervision of normal first in second trimester ([facility]), Encounter for (NT) nuchal translucency scan([facility]) * URINALYSIS W/MICROSCOPIC NO CULTURE(Performed 10/05/2020) * CULTURE URINE(Performed 10/05/2020) * SONOGRAM - COMPLETE(Performed 10/03/2020) Performed for Medication exposure during first trimester of ([facility]), Encounter for supervision of normal first in second trimester ([facility]), Encounter for anatomic survey ([facility]) * SONOGRAM - COMPLETE(Performed 09/03/2020) Performed for Medication exposure during first trimester of ([facility]), Encounter for supervision of normal first in second trimester ([facility]) * SONOGRAM - COMPLETE(Performed 08/01/2020) Performed for Medication exposure during first trimester of ([facility]), Encounter for supervision of normal first in first trimester ([facility]), Encounter for (NT) nuchal translucency scan ([facility]) Results * SONOGRAM - COMPLETE (01/18/2021 2:19 PM CDT) Only the most recent of7 resultswithin the time period is included. Anatomical Region Laterality Modality Other 01/18/2021 2:19 PM CDT Narrative 01/18/2021 2:48 PM CDT [facility] PHONE: FAX: [email or web address]. Name: JACKIE ZAPIEN. No: [id number] Study Date: 01/18/2021 2:19pm , Age: 10 1985, 35 Pregnancies: 1, Para 0 Height: 68 in Weight: 195 lb LMP: 05/10/2020 GA by LMP: 36w1d GA by Base: 36w1d SHERLEY: 02/14/2021 GA by US: 37w3d SHERLEY: 02/05/2021 GA Selected: 36w1d (LMP) SHERLEY: 02/14/2021 Referring MD: Alejo Meredith MD Obstetrics Teacher: Carmencita Crawford RDMS CPT4: 53880 BMI: 29.65 Hist/Ind: Ventriculomegaly Suspected accelerated growth Low-risk NIPT (per patient report) MEASUREMENTS & AGE GROWTH EVALUATION Measurement GA Range Srce %for GA Ratios ----- ---- ------- BPD 10.0 cm 41w0d (71b6f-71w1h) Hadl BPD >99 FL/BPD 0.71 (0.71 - 0.87) HC 37.4 cm Hadl HC FL/AC 0.20 (0.20 - 0.24) AC 34.9 cm 38w6d (71k5g-54x2q) Hadl AC >99 HC/AC 1.07 (0.92 - 1.11) FL 7.1 cm 36w3d (51a6a-91o4i) Hadl FL 54% CI 0.74 (0.70 - 0.86) HL 6.4 cm 37w2d (21c8i-44j0v) Ta HL 70% GA for sonogram 37w3d (43q9w-95x2q) Weight Estimate: based on (AC,FL) [place] Weight: [...] ! ! ! ! x ! External [place]! ! ! ! x ! Placental Cor! 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 Thank you for allowing us the opportunity to care for your patient. Darrel Jamil MD <Electronic Signature> 01/18/2021 02:48pm Jacy Meredith MD [facility] ORDERABLES * (ABNORMAL) URINALYSIS W/MICROSCOPIC NO CULTURE (10/05/2020 12:08 PM CDT) Color UA YELLOW YELLOW [facility] Appearance CLEAR CLEAR [facility] Specific [place] UA 1.020 1.001 - 1.035 [facility] pH [...] MUCOUS THREADS [facility] Comment: Test Performed at: [facility] [address] [place] [address] LAUREN FREITAS DO,MPH 10/05/2020 12:0 8 PM CDT 10/05/2020 12:09 PM CDT Juhi Martell SUSTAINABLE DESIGN COORDINATOR-MOVIE PROJECTIONIST LAB - URINALYSI S ORDERABLES [facility] [id number] [place] [address] * CULTURE URINE (10/05/2020 12:08 PM CDT) Culture [facility] Comment: CULTURE, URINE, ROUTINE Micro Number: [id number] Test Status: Final Specimen Source: URINE, CLEAN CATCH Specimen Quality: Adequate Result: Growth of mixed elan was isolated, suggesting probable contamination. No further testing will be performed. If clinically indicated, recollection using a method to minimize contamination, with prompt transfer to Urine Culture Transport Tube, is recommended. REPORT COMMENT: FASTING:NO Test Performed at: [facility] [address] ADAM NAM MD 10/05/2020 12:0 8 PM CDT 10/05/2020 12:09 PM CDT Juhi Martell SUSTAINABLE DESIGN COORDINATOR-MOVIE PROJECTIONIST LAB - MICROBIOL OGY ORDERABLES [employer] [address] [place] [id number]
--- NOTE | 2024-07-03 17:48 | ED.GENADULT ---
HPI - General Adult General Chief complaint: Back Pain/Injury Stated complaint: back pain Time Seen by Provider: 07/03/24 16:44 History of Present Illness HPI narrative: 39-year-old female presents emergency department for evaluation for left lower back pain and left-sided sciatica. Patient reports symptoms ongoing for the last few days. Patient states pain that radiates from her left hip down the left leg but does not go past the left medial thigh. Patient does have pain leg but denies any current numbness or weakness. Patient denies any loss of bowel or bladder control. Related Data Allergies Allergy/AdvReac Type Severity Reaction Status Date / Time Penicillins Allergy Intermediate swelling Verified 07/03/24 16:38 and hives Review of Systems Review of Systems: All systems reviewed & are unremarkable except as noted in HPI and below PMFSH Past Medical History Medical History Cyclic vomiting syndrome Family History Family History Father Patient's father is in good health Sibling Patient's sister is in good health Mother Family history of lung cancer Patient's mother is Grandparent Family history of lung cancer Social History Social History Smoking status: Former smoker Tobacco type: cigarettes Second hand tobacco smoke exposure: Yes Alcohol intake: never Substance use: never Substance use type: marijuana Lack of Transportation: No Lack of Food: Never True Current Housing: I Have Housing Concerned About Future Housing: No Difficulty Paying Gas/Electric Bills: No Difficulty Paying for Meds: No Currently Unemployed: No Education: Bachelor's Degree Difficulty w/ Childcare or Family Care: No Spiritual care concerns: No Exam Narrative: APPEARANCE: Well appearing, no pain, no distress, well-nourished. HEAD: normocephalic, atraumatic. EYES: PERRLA/EOMI, conjunctivae clear. NOSE: Normal no drainage EARS:TMS clear with good light reflex. THROAT: Pharynx clear, no exudate. NECK: Supple. No adenopathy, no masses. RESPIRATORY: Airway patent, respirations nonlabored. Clear to auscultation bilaterally, no rales, rhonchi, wheezing. CARDIOVASCULAR: Regular rate and rhythm without murmurs rubs or gallops. ABDOMINAL: Soft, nontender, nondistended, normal bowel sounds MUSCULOSKELETAL: Lower back tenderness to palpation with tenderness to left buttock NEURO: Alert. Cranial nerves II through XII intact. Good gait. Good coordination SKIN: Warm, dry. Normal Color Course Vital Signs Vital signs: Vital Signs Temperature 98.1 F 07/03/24 14:46 Pulse Rate 115 H 07/03/24 14:46 Respiratory Rate 17 07/03/24 14:46 Blood Pressure 125/81 07/03/24 14:46 Pulse Oximetry 100 07/03/24 14:46 Oxygen Delivery Room Air 07/03/24 14:46 Temperature 98.6 F 07/03/24 18:23 Pulse Rate 98 07/03/24 18:23 Respiratory Rate 20 07/03/24 18:23 Blood Pressure 120/68 07/03/24 18:23 Pulse Oximetry 98 07/03/24 18:23 Oxygen Delivery Room Air 07/03/24 14:46 Medical Decision Making MDM Narrative Medical decision making narrative: 39-year-old female presented emergency department for evaluation for lower back pain into left hip and left thigh that is consistent with sciatica. Patient was provided medications for pain control and started on a Medrol Dosepak. Patient was encouraged close follow-up with primary care physician. Patient was also advised she may benefit from physical therapy. All questions concerns were addressed patient was comfortable the time of discharge. Differential Diagnosis Differential Diagnosis: Lower back strain, sciatica, and strain Vital Signs Vital Signs: Vital Signs Temperature 98.1 F 07/03/24 14:46 Pulse Rate 115 H 07/03/24 14:46 Respiratory Rate 17 07/03/24 14:46 Blood Pressure 125/81 07/03/24 14:46 Pulse Oximetry 100 07/03/24 14:46 Oxygen Delivery Room Air 07/03/24 14:46 Temperature 98.6 F 07/03/24 18:23 Pulse Rate 98 07/03/24 18:23 Respiratory Rate 20 07/03/24 18:23 Blood Pressure 120/68 07/03/24 18:23 Pulse Oximetry 98 07/03/24 18:23 Oxygen Delivery Room Air 07/03/24 14:46 Discharge Plan Discharge Clinical Impression: Sciatica Patient Disposition: Home, Self-Care Condition: Stable Instructions: Antibiotic Form, Sciatica (ED), Acute Low Back Pain (ED) Additional Instructions: Ibuprofen for pain control. [place] as needed for additional pain control. Medrol Dosepak as directed. Flexeril for muscle spasm. Have close follow-up with your primary care physician. If you have any worsening symptoms then please call or return to the emergency department. Patient Language: Swedish Prescriptions: New cyclobenzaprine 10 mg tablet 10 mg PO BID PRN (Reason: muscle spasm) Qty: 14 0RF hydrocodone-acetaminophen 5-325 mg tablet 1 tablet PO Q12H PRN (Reason: pain) Qty: 14 0RF methylprednisolone [Medrol ([place])] 4 mg tablets,dose pack See Rx Instructions .ROUTE .COMPLEX Qty: 21 0RF Rx Instructions: for 6 days No Action lorazepam 0.5 mg tablet 0.5 mg PO BID PRN (Reason: anxiety) Qty: 30 0RF ondansetron 4 mg tablet,disintegrating 8 mg PO Q8H PRN (Reason: nausea and vomiting) Qty: 30 0RF amitriptyline 150 mg tablet See Rx Instructions .ROUTE .COMPLEX Qty: 90 1RF Dose Instruction: TAKE 1 TABLET BY MOUTH EVERY DAY Rx Instructions: TAKE 1 TABLET BY MOUTH EVERY DAY Follow-up/Referrals: PHYSICIAN,ADMINISTRATIVE PROGRAM SPECIALIST [Primary Care Provider] -
[2024-07-03 18:23] VITALS: BP 120/68; PULSE 98; RESP 20; TEMP 37; O2SAT 98
== END 2024-07-03 18:05 | disposition home or self-care (01) ==
PROVIDERS: Emergency Provider Emergency Medicine
DX: M54.42 Lumbago with sciatica, left side (principal); Z87.891 Personal history of nicotine dependence
CPT/HCPCS: 99283